=== PATIENT | female | born 1965 | race Two or more races ===

== ENCOUNTER 2024-02-25 17:43 | Inpatient (IN) | payer MEDICAID, OTHER ==
[~2024-02-25] VITALS: Ht 160 cm; Wt 93.3 kg
--- NOTE | 2024-02-25 18:00 | ECG ---
[facility] Test Date: 2024-02-25 Test Time: 17:59:09 Pat Name: SIDDHARTH IVAN Department: ER Room: Gender: F Fan Mail Editor: JORDON : 1965 Requested By: JINA ALEMAN Order Number: [id number] Reading MD: Measurements Intervals [place] Rate: 85 P: 65 CA: 179 QRS: 98 QRSD: 84 T: 267 QT: 408 QTc: 486 Interpretive Statements Sinus rhythm Right axis deviation Abnrm T, consider ischemia, anterolateral lds Please click the below link to view image of tracing.
--- NOTE | 2024-02-25 18:15 | ED.PDOC ---
History of Present Illness HPI Comments 58F BIBA w/ prior Hx of Anxiety, HTN and High Lipids which all may be associated to the c/c of CP. EMS report that the pt drank some wine w/ her family when she got into a dispute with them and started to have pressure like CP on the left chest cavity at 1710. We did call Doctor Abigail and he stated that there was no Stemi. Pain Type of a 8. PMHx of Asthma and COPD. Social Hx of quit tobacco use 4 years ago, occasional alcohol use, and marijuana use. Family Hx of DM, HTN and Lung cancer. Denies chills, fever, N/V/D, SOB or other associated symptom's, modifiers, or recent injuries or sick contact at this time. Chief Complaint: Chest Pain Time Seen by MD: 18:00 Reviewed Notes: Nurses Notes, Medications, Allergies Allergies: Coded Allergies: Niacin (Verified Allergy, Unknown, 02/25/24) Information Source: Patient, Emergency Med Personnel Mode of Arrival: EMS Severity: Moderate Timing: Minutes Duration: Since onset, Minutes Prehospital treatment: None Past Medical History PAST MEDICAL HISTORY: Anxiety, Asthma, COPD, High Lipids, HTN Surgical History: Denies all surgeries ROUTING MACHINE OPERATOR History: No Pertinent ROUTING MACHINE OPERATOR History Family History Family History: Reviewed,noncontributory to illness, Family hx of DM, Family hx of Cancer (Lung), Family hx of HTN Social History Smoker: Quit Greater Than 1 Year Alcohol: Occasionally Drugs: Marijuana Lives In: Home Constitutional: denies: chills, diaphoresis, fatigue, fever, malaise, sweats, weakness, others EENTM: denies: blurred vision, double vision, ear bleeding, ear discharge, ear drainage, ear pain, ear ringing, eye pain, eye redness, hearing loss, mouth pain, mouth swelling, nasal discharge, nose bleeding, nose congestion, nose pain, photophobia, tearing, throat pain, throat swelling, voice changes, others Respiratory: denies: cough, hemoptysis, orthopnea, SOB at rest, shortness of breath, SOB with excertion, stridor, wheezing, others Cardiovascular: reports: chest pain; denies: dizzy spells, diaphoresis, Dyspnea on exertion, edema, irregular heart beat, left arm pain, lightheadedness, palpitations, PND, syncope, others Gastrointestinal: denies: abdomen distended, abdominal pain, blood streaked bowels, constipated, diarrhea, dysphagia, difficulty swallowing, hematemesis, melena, nausea, poor appetite, poor fluid intake, rectal bleeding, rectal pain, vomiting, others Genitourinary: denies: abnormal vagina bleeding, burning, dyspareunia, dysuria, flank pain, frequency, hematuria, incontinence, pain, , vagina discharge, urgency, others Neurological: denies: dizziness, fainting, headache, left sided numbness, left sided weakness, numbness, paresthesia, pre-existing deficit, right sided numbness, right sided weakness, seizure, speech problems, tingling, tremors, weakness, others Musculoskeletal: denies: back pain, gout, joint pain, joint swelling, muscle pain, muscle stiffness, neck pain, others Integumetry: denies: bruises, change in color, change in hair/nails, dryness, laceration, lesions, lumps, rash, wounds, others Allergic/Immunocompromised: denies: Difficulty Healing, Frequent Infections, Hives, Itching, others Hematologic/Lymphatic: denies: anemia, blood clots, easy bleeding, easy bruising, swollen glands, others Endocrine: denies: excessive hunger, excessive sweating, excessive thirst, excessive urination, flushing, intolerance to cold, intolerance to heat, unexplained weight gain, unexplained weight loss, others Psychiatric: denies: anxiety, bipolar disorder, depression, hopeless, panic disorder, schizophrenia, sleepless, suicidal, others All Other Systems: Reviewed and Negative Physical Exam General Appearance: Moderate Distress HEENT: Normal ENT Inspection, Pharynx Normal, TMs Normal Neck: Full Range of Motion, Non-Tender, Normal, Normal Inspection Respiratory: Chest Non-Tender, Lungs Clear, No Accessory Muscle Use, No Respiratory Distress, Normal Breath Sounds Cardiovascular: No Edema, No JVD, No Murmur, No Gallop, Normal Peripheral Pulses, Regular Rate/Rhythm Breast Exam: Deferred Gastrointestinal: No Organomegaly, Non Tender, No Pulsatile Mass, Normal Bowel Sounds, Soft Genitalia: Deferred Pelvic: Deferred Rectal: Deferred Extremities: No calf tenderness, Normal capillary refill, Normal inspection, Normal range of motion, Non-tender, No pedal edema Musculoskeletal : Apperance: Normal Neurologic: Alert, dispatch specialist II-XII nml as Tested, No Motor Deficits, Normal Affect, Normal Mood, No Sensory Deficits Cerebellar Function: Normal Reflexes: Normal Skin: Dry, Normal Color, Warm Lymphatic: No Adenopathy Was a procedure done? Was a procedure done?: No EKG EKG : Pulse Rate (adult): 74 [place]: Normal Cardiac Rhythm: NSR ST: Nonsp Differential Dx Considerations may include: ACS, CT, acute myocardial ischemia X-Ray, Labs, Meds, VS Vital Signs Date Time Temp Pulse Resp B/P (MAP) Pulse Ox O2 Delivery O2 Flow Rate FiO2 02/25/24 19:35 Room Air* 0 21 02/25/24 18:51 79 02/25/24 18:37 Room Air* 0 21 02/25/24 18:35 98.0 84 12 96/75 (82) 94 98.0 02/25/24 17:59 85 02/25/24 17:57 98.3 99 16 120/82 (95) 98 Lab Test 02/25/24 18:58 02/25/24 18:04 Range/Units Troponin I High Sensitivity 233 *H 233 *H </=34 ng/L White Blood Count 6.8 4.4-10.8 10^3/uL Red Blood Count 4.08 4.0-5.20 10^6/uL Hemoglobin 11.1 L 12.2-16.2 g/dL Hematocrit 34.2 L 36.0-46.0 % Mean Corpuscular Volume 83.7 80.0-100.0 fL Mean Corpuscular Hemoglobin 27.1 L 28.0-32.0 pg Mean Corpuscular Hemoglobin Concent 32.4 32.0-36.0 g/dL Red Cell Distribution Width 17.4 H 11.8-14.3 % Platelet Count 364 140-450 10^3/uL Mean Platelet Volume 7.1 6.9-10.8 fL Neutrophils (%) (Auto) 54.0 37.0-80.0 % Lymphocytes (%) (Auto) 33.9 10.0-50.0 % Monocytes (%) (Auto) 10.3 0.0-12.0 % Eosinophils (%) (Auto) 0.6 0.0-7.0 % Basophils (%) (Auto) 1.2 0.0-2.0 % Neutrophils # (Auto) 3.7 1.6-8.6 10 ^3/uL Lymphocytes # (Auto) 2.3 0.4-5.4 10 ^3/uL Monocytes # (Auto) 0.7 0-1.3 10 ^3/uL Eosinophils # (Auto) 0 0-0.8 10 ^3/uL Basophils # (Auto) 0.1 0-0.2 10 ^3/uL Nucleated Red Blood Cells 0.0 % Prothrombin Time 10.5 9.3-11.8 sec Prothrombin Time INR 0.99 0.9-1.15 Activated Partial Thromboplast Time 23.3 L 24.5-34.5 SEC Sodium Level 139 136-145 mmol/L Potassium Level 2.8 L 3.5-5.1 mmol/L Chloride Level 100 98-107 mmol/L Carbon Dioxide Level 26 20-31 mmol/L Anion Gap 13 5-15 Blood Urea Nitrogen 13 9-23 mg/dL Creatinine 0.95 0.550-1.02 mg/dL Glomerular Filtration Rate Calc 69 >90 mL/min BUN/Creatinine Ratio 13.7 10.0-20.0 Serum Glucose 95 74-106 mg/dL Calcium Level 10.1 8.7-10.4 mg/dL Magnesium Level 1.6 1.6-2.6 mg/dL Total Bilirubin 0.3 0.2-1.0 mg/dL Aspartate Amino Transferase (AST) 20 13-40 U/L Alanine Aminotransferase (ALT) 25 7-40 U/L Alkaline Phosphatase 88 46-116 U/L B-Type Natriuretic Peptide 529.64 0-100 pg/mL Total Protein 6.3 5.7-8.2 g/dL Albumin 4.3 3.2-4.8 g/dL Current Medications Medications (Trade) Dose Ordered Sig/Ahsan Route Start Time Stop Time Status Last Admin Aspirin 162 mg ONCE ONCE PO 02/25/24 18:15 02/25/24 18:16 DC 02/25/24 18:22 Heparin Sodium (Porcine) 4,000 units ONCE ONCE IV 02/25/24 19:15 02/25/24 19:16 DC 02/25/24 20:32 IV Hep-Lock was established The patient's CBC is within normal limits The chemistry panel is within normal limits The patient's troponin levels are elevated at 233 We did repeat the troponin and it was the same The patient is now being started on heparin 4000 units IV push The patient was also being given heparin drip The patient was being admitted to the hospitalist at this time The patient was diagnosis is non STEMI We have discussed the findings with the patient. We have taken the time to review all medications and labs results The patient will be admitted Images Reviewed?: Images reviewed and evaluated by me Time of 1ST Reevaluation: 18:30 Reevaluation 1ST: Unchanged Patient Education/Counseling: Diagnosis, Treatment, Prognosis Family Education/Counseling: No Family Present Departure 1 Departure Time of Disposition: 21:23 Impression: Primary Impression: Non-STEMI (non-ST elevated myocardial infarction) Disposition: ADMITTED INPATIENT Admit to: Tele Condition: Fair Critical Care Note Critical Care Time?: Yes (35 min-critical care time only) Stability Stability form required: Yes Unstable for transfer: Telemetry monitoring (Telemetry monitoring required), ED Physician Assesment (Clinical assesment) Heart Score Heart Score: Heart Score Response (Comments) Value History Moderate Suspicious 1 EKG Repolarization Disturb 1 Age 45-64 1 Risk Factors >3 or Hx ASHD 2 Troponin 1-2 x's Normal limit 1 Total 6 I personally scribed for JINA ALEMAN MD ([email or web address]) on 02/25/24 at 18:15. Electronically submitted by Kvng Corbin ([email or web address]). JINA ALEMAN MD Feb 25, 2024 18:15
[2024-02-25 18:17] LABS: Basophils # (auto) 0.1 10 ^3/uL (0-0.2); Basophils % (auto) 1.2 % (0.0-2.0); Eosinophils # (auto) 0 10 ^3/uL (0-0.8); Eosinophils % (auto) 0.6 % (0.0-7.0); Hematocrit 34.2 % (36.0-46.0); Hemoglobin 11.1 g/dL (12.2-16.2); Lymphocytes # (auto) 2.3 10 ^3/uL (0.4-5.4); Lymphocytes % (auto) 33.9 % (10.0-50.0); Mean Corpuscular Hemoglobin 27.1 pg (28.0-32.0); Mean Corpuscular Hgb Conc. 32.4 g/dL (32.0-36.0); Mean Corpuscular Volume 83.7 fL (80.0-100.0); Monocytes # (auto) 0.7 10 ^3/uL (0-1.3); Monocytes % (auto) 10.3 % (0.0-12.0); Neutrophils # (auto) 3.7 10 ^3/uL (1.6-8.6); Platelet Count (auto) 364 10^3/uL (140-450); Red Blood Cells 4.08 10^6/uL (4.0-5.20); Red Cell Distribution Width 17.4 % (11.8-14.3); White Blood Cell 6.8 10^3/uL (4.4-10.8)
[2024-02-25] MEDS: ASPirin 81 mg TAB PO ONE (18:22)
[2024-02-25 18:34] LABS: Alanine Aminotransferase 25 U/L (7-40); Albumin 4.3 g/dL (3.2-4.8); Alkaline Phosphatase 88 U/L (46-116); Anion Gap 13 (5-15); Aspartate Aminotransferase 20 U/L (13-40); BUN/Creatinine Ratio 13.7 (10.0-20.0); Blood Urea Nitrogen 13 mg/dL (9-23); Calcium 10.1 mg/dL (8.7-10.4); Carbon Dioxide 26 mmol/L (20-31); Chloride 100 mmol/L (98-107); Glucose 95 mg/dL (74-106); Magnesium 1.6 mg/dL (1.6-2.6); Sodium 139 mmol/L (136-145)
[2024-02-25 18:35] LABS: Total Protein 6.3 g/dL (5.7-8.2)
[2024-02-25 18:37] LABS: Bilirubin, Total 0.3 mg/dL (0.2-1.0); Potassium 2.8 mmol/L (3.5-5.1)
--- NOTE | 2024-02-25 18:41 | DVH ---
CHEST RADIOGRAPH Indication: CP Technique: Single frontal view of the chest was obtained Comparison: None FINDINGS: Lines and Tubes: None Lungs: No focal consolidation. Pleura: No effusion. No pneumothorax. Cardiomediastinal contours: Unremarkable Bones: No acute osseous abnormality. IMPRESSION: No acute cardiopulmonary disease.
--- NOTE | 2024-02-25 18:53 | ECG ---
[facility] Test Date: 2024-02-25 Test Time: 18:51:42 Pat Name: SIDDHARTH IVAN Department: ER Room: Gender: F Force Dispatcher: JOSÉ MIGUEL : 1965 Requested By: JINA ALEMAN Order Number: [id number] Reading MD: Measurements Intervals [place] Rate: 79 P: 56 [place]: 169 QRS: 90 QRSD: 105 T: 266 QT: 406 QTc: 466 Interpretive Statements Sinus rhythm Borderline right axis deviation Repol abnrm suggests ischemia, anterolateral Please click the below link to view image of tracing.
[2024-02-25] MEDS ORDERED: ALBUTEROL SULF 2.5 MG/0.5ML(0.5%) NEB SOLN NEB PRN (20:15)
[2024-02-25] MEDS ORDERED: ACETAMINOPHEN 325 MG TAB PO PRN (20:15)
[2024-02-25] MEDS ORDERED: ONDANSETRON HCL 4 MG/2 ML VIAL IV PRN (20:15)
[2024-02-25] MEDS ORDERED: NITROGLYCERIN 0.4 MG SL TAB SL PRN (20:15)
[2024-02-25] MEDS ORDERED: MORPHINE SULFATE INJ 2 MG/ml SYRG IV PRN (20:15)
[2024-02-25 20:17] LABS: INR 0.99 (0.9-1.15); Partial Thromboplastin Time 23.3 SEC (24.5-34.5); Prothrombin Time 10.5 sec (9.3-11.8)
[2024-02-25] MEDS: HEPARIN SODIUM (PORCINE) 5000 UNITS/ML 1ML VIAL IV ONE ×2 (20:25→20:32)
[2024-02-25] MEDS: HEPARIN DRIP/D5W 100UNITS/ML 250 ML IV SCH (20:34)
[2024-02-25 20:51] VITALS: BP 96/75; PULSE 73; RESP 14; TEMP 98; O2SAT 95
[2024-02-25] MEDS: busPIRone HCL 10 MG TAB PO SCH (22:02)
[2024-02-25] MEDS: ATORVASTATIN 20 MG TAB PO SCH (22:02)
[2024-02-25 22:58] VITALS: BP 113/66; PULSE 67; PULSE 69; RESP 16; RESP 19; TEMP 97.9; O2SAT 94; O2SAT 95; O2SAT 96
[2024-02-26] VITALS (16 sets, daily range): BP systolic 107–128; BP diastolic 64–95; PULSE 63–86; RESP 16–20; TEMP 97.8–98.3; O2SAT 93–96
[2024-02-26] MEDS: POTASSIUM CHL 20 Meq TABLET PO ONE (00:46)
[2024-02-26] MEDS ORDERED: BUSP15TA60 PO (02:32)
[2024-02-26] MEDS ORDERED: HYDR12.59 PO (02:32)
[2024-02-26] MEDS ORDERED: IBUP-1455 PO (02:32)
[2024-02-26] MEDS ORDERED: CITA10TA5 PO (02:32)
[2024-02-26] MEDS ORDERED: FAMO40TA7 PO (02:32)
[2024-02-26] MEDS ORDERED: ATOR10TA52 PO (02:32)
--- NOTE | 2024-02-26 02:50 | DVHHP2 ---
History of Present Illness Reason for Visit: Chest pain History of Present Illness 58-year-old female presents for evaluation chest pain. Patient reports developing left-sided chest pressure that was nonradiating. She states having an argument with a family member and subsequently symptoms started. Denies shortness or breath, nausea or vomiting. Past Medical History Dyslipidemia, hypertension, COPD, asthma Past Surgical History Denies Family History Lung cancer, hypertension, diabetes mellitus Smoke: No ALCOHOL: none Drugs: None Lives: with Family Review of Systems Review of Systems Review of systems are currently negative otherwise addressed in HPI. Allergies: Coded Allergies: Niacin (Verified Allergy, Unknown, 02/25/24) Medications Current Medications Medications Dose Ordered Sig/Ahsan Route Start Time Stop Time Status Last Admin Dose Admin Heparin Sodium/ Dextrose 250 ml @ 9 mls/hr Q24H IV 02/25/24 20:30 02/25/24 20:34 9 MLS/HR Hydrochlorothiazide 12.5 mg DAILY PO 02/26/24 10:00 Atorvastatin Calcium 10 mg HS PO 02/25/24 22:00 02/25/24 22:02 10 MG Albuterol 2.5 mg Q6HPRN PRN NEB 02/25/24 20:15 Buspirone HCl 15 mg Q12HR PO 02/25/24 22:00 02/25/24 22:02 15 MG Lisinopril 2.5 mg DAILY PO 02/26/24 10:00 Aspirin 162 mg DAILY PO 02/26/24 10:00 Ondansetron HCl 4 mg Q4HP PRN IV 02/25/24 20:15 Acetaminophen 650 mg Q6HP PRN PO 02/25/24 20:15 Nitroglycerin 0.4 mg Q5MINP PRN SL 02/25/24 20:15 Morphine Sulfate 2 mg Q30M PRN IV 02/25/24 20:15 Exam Vital Signs Vital Signs Date Time Temp Pulse Resp B/P (MAP) Pulse Ox O2 Delivery O2 Flow Rate FiO2 02/26/24 01:26 97.8 70 16 113/66 (82) 96 97.8 02/25/24 22:58 Room Air* 0 21 Exam Gen: 58-year-old female in no apparent distress. Skin: Warm, dry, normal color and texture, no rash. HEENT: Normocephalic atraumatic, mucous membranes moist and pink. Neck: Cervical and supraclavicular nodes normal without enlargement, trachea is midline, thyroid gland is normal without masses. Pulmonary: Clear to auscultation and percussion bilaterally. Cardiac: Regular rate and rhythm. No murmur Abdomen: Soft, nontender, nondistended, bowel sounds present all 4 quadrants, no guarding, no rigidity, no organomegaly. Extremities: No cyanosis, clubbing, no edema Neuro: Cranial nerves II through XII grossly intact, normal affect and speech, no focal motor deficits. Labs/Xrays ORDERING PHYSICIAN: JINA ALEMAN MD PROCEDURE(s): CXRP - CHEST PORTABLE REASON: CP ORDER NUMBER(s): [id number], ACCESSION NUMBER(s): [id number] CHEST RADIOGRAPH Indication: CP Technique: Single frontal view of the chest was obtained Comparison: None FINDINGS: Lines and Tubes: None Lungs: No focal consolidation. Pleura: No effusion. No pneumothorax. Cardiomediastinal contours: Unremarkable Bones: No acute osseous abnormality. IMPRESSION: No acute cardiopulmonary disease. Labs Test 02/25/24 21:05 02/25/24 18:04 Range/Units Troponin I High Sensitivity 246 *H </=34 ng/L White Blood Count 6.8 4.4-10.8 10^3/uL Red Blood Count 4.08 4.0-5.20 10^6/uL Hemoglobin 11.1 L 12.2-16.2 g/dL Hematocrit 34.2 L 36.0-46.0 % Mean Corpuscular Volume 83.7 80.0-100.0 fL Mean Corpuscular Hemoglobin 27.1 L 28.0-32.0 pg Mean Corpuscular Hemoglobin Concent 32.4 32.0-36.0 g/dL Red Cell Distribution Width 17.4 H 11.8-14.3 % Platelet Count 364 140-450 10^3/uL Mean Platelet Volume 7.1 6.9-10.8 fL Neutrophils (%) (Auto) 54.0 37.0-80.0 % Lymphocytes (%) (Auto) 33.9 10.0-50.0 % Monocytes (%) (Auto) 10.3 0.0-12.0 % Eosinophils (%) (Auto) 0.6 0.0-7.0 % Basophils (%) (Auto) 1.2 0.0-2.0 % Neutrophils # (Auto) 3.7 1.6-8.6 10 ^3/uL Lymphocytes # (Auto) 2.3 0.4-5.4 10 ^3/uL Monocytes # (Auto) 0.7 0-1.3 10 ^3/uL Eosinophils # (Auto) 0 0-0.8 10 ^3/uL Basophils # (Auto) 0.1 0-0.2 10 ^3/uL Nucleated Red Blood Cells 0.0 % Prothrombin Time 10.5 9.3-11.8 sec Prothrombin Time INR 0.99 0.9-1.15 Activated Partial Thromboplast Time 23.3 L 24.5-34.5 SEC Sodium Level 139 136-145 mmol/L Potassium Level 2.8 L 3.5-5.1 mmol/L Chloride Level 100 98-107 mmol/L Carbon Dioxide Level 26 20-31 mmol/L Anion Gap 13 5-15 Blood Urea Nitrogen 13 9-23 mg/dL Creatinine 0.95 0.550-1.02 mg/dL Glomerular Filtration Rate Calc 69 >90 mL/min BUN/Creatinine Ratio 13.7 10.0-20.0 Serum Glucose 95 74-106 mg/dL Calcium Level 10.1 8.7-10.4 mg/dL Magnesium Level 1.6 1.6-2.6 mg/dL Total Bilirubin 0.3 0.2-1.0 mg/dL Aspartate Amino Transferase (AST) 20 13-40 U/L Alanine Aminotransferase (ALT) 25 7-40 U/L Alkaline Phosphatase 88 46-116 U/L B-Type Natriuretic Peptide 529.64 0-100 pg/mL Total Protein 6.3 5.7-8.2 g/dL Albumin 4.3 3.2-4.8 g/dL Assessment/Plan Assessment/Plan Assessment NSTEMI Hypertension COPD Plan Admit the patient to telemetry to the hospitalist ACS protocol Resume home medications Continue treatment orders. Plan discussed with: Patient My Orders Orders - SHASHA WEI AGACNP Procedure Category Date Status Time Hydrochlorothiazide PHA 02/26/24 In Process Tablet (Hydrochlorot 10:00 Atorvastatin (Lipitor) PHA 02/25/24 In Process 22:00 Albuterol Medneb PHA 02/25/24 In Process (Ventolin Medneb) 20:15 Buspirone Hcl Tablet PHA 02/25/24 In Process (Buspar Tablet) 22:00 Lisinopril Tablet PHA 02/26/24 In Process (Zestril Tablet) 10:00 Aspirin Tablet PHA 02/26/24 In Process 10:00 Admit ADMIT 02/25/24 Transmitted 20:08 Ondansetron Hcl PHA 02/25/24 In Process (Zofran) 20:15 Cardiac DIET 02/26/24 Transmitted Diet-2gna,Lofat,Lochol Breakfast Echo 2d Mode Cardiac US 02/25/24 Logged DOP 20:08 Condition: Fair DEJON 02/25/24 In Process 20:08 Acetaminophen Tablet [facility] 02/25/24 In Process (Tylenol Tablet) 20:15 Bedrest With Bathroom DEJON 02/25/24 In Process Privileg 20:08 Nitroglycerin PHA 02/25/24 In Process Sublingual (Ntrostat 20:15 Morphine Sulfate PHA 02/25/24 In Process Injection 20:15 Notify Of Changes [facility] 02/25/24 In Process From Base 20:08 Health And Safety Tech For [facility] 02/25/24 In Process 24 Hours 20:08 Emergency Dysrhythmia [facility] 02/25/24 In Process Protocol 20:08 Rhythm Strips Once [facility] 02/25/24 In Process Every Shift 20:08 Oxygen By Nasal RT 02/25/24 Transmitted Cannula 20:08 Basic Metabolic Panel LAB 02/26/24 Logged 04:00 Cssrs Frequent [facility] 02/25/24 In Process Screener (Daily 23:50 Patient & Room / [facility] 02/25/24 In Process Environmental 23:50 *Tele Psych Consult CONS 02/25/24 Transmitted 23:50 * Clothing Examiner CONS 02/26/24 Transmitted Consult 01:39 Date of Service: Feb 25, 2024 Billing Provider: SHASHA WEI Common Visit Codes: [id number] INP/OBS CARE (HIGH) SHASHA WEI Feb 26, 2024 02:50
[2024-02-26 03:12] LABS: Chloride 104 mmol/L (98-107); Sodium 142 mmol/L (136-145)
[2024-02-26 03:14] LABS: Anion Gap 9 (5-15); Carbon Dioxide 29 mmol/L (20-31)
[2024-02-26 03:19] LABS: Glucose 102 mg/dL (74-106)
[2024-02-26 03:20] LABS: INR 1.04 (0.9-1.15); Partial Thromboplastin Time 33.6 SEC (24.5-34.5)
[2024-02-26 03:21] LABS: Potassium 3.3 mmol/L (3.5-5.1)
[2024-02-26 03:30] LABS: BUN/Creatinine Ratio 11.4 (10.0-20.0); Blood Urea Nitrogen 9 mg/dL (9-23)
[2024-02-26] MEDS: HEPARIN SODIUM (PORCINE) 5000 UNITS/ML 1ML VIAL IV ONE (04:15)
[2024-02-26] MEDS: HEPARIN DRIP/D5W 100UNITS/ML 250 ML IV SCH (04:18)
[2024-02-26] MEDS: PNEUMOCOCCAL VACC POLYS 25 MCG/0.5 ML VIAL IM ONE (04:25)
--- NOTE | 2024-02-26 05:58 | DVHINCON2 ---
Date of service: Feb 26, 2024 History of Present Illness 58 yo F with obesity, HTN, tobacco former, copd, admitted for chest pain and nstemi. i was called for abnormla ecg showing TWI inferolaterally. chest pain resolved overnight Past Medical History reviewed Family History: Patient reports no known family medical history. Allergies: Coded Allergies: Niacin (Verified Allergy, Unknown, 02/25/24) Home Meds Reported Medications Famotidine (Famotidine) 40 Mg Tab, 1 TAB PO DAILY 02/26/24 Citalopram Hydrobromide (Citalopram Hydrobromide) 10 Mg Tab, 1 TAB PO DAILY 02/26/24 Ibuprofen Micronized (Ibuprofen) 800 Mg Tab, 1 TAB PO Q8HPRN for PAIN SCALE 1 THRU 6 02/26/24 Buspirone Hcl (Buspirone Hcl) 15 Mg Tab, 1 TAB PO BIDPRN PRN for anxiety 02/26/24 Atorvastatin Calcium (ATORVASTATIN CALCIUM) 10 Mg Tab, 1 TAB PO DAILY 02/26/24 Hydrochlorothiazide (Hydrochlorothiazide) 12.5 Mg Cap, 1 CAP PO QAM 02/26/24 Current Medications Current Medications Medications (Trade) Dose Ordered Sig/Ahsan Route PRN Reason Start Time Stop Time Status Last Admin Heparin Sodium/ Dextrose 250 ml @ 9 mls/hr Q24H IV 02/25/24 20:30 02/26/24 04:01 DC 02/25/24 20:34 Hydrochlorothiazide (hydroCHLOROthiazide TABLET) 12.5 mg DAILY PO 02/26/24 10:00 Atorvastatin Calcium (Lipitor) 10 mg HS PO 02/25/24 22:00 02/25/24 22:02 Albuterol (Ventolin Medneb) 2.5 mg Q6HPRN PRN NEB SHORTNESS OF BREATH 02/25/24 20:15 Buspirone HCl (Buspar Tablet) 15 mg Q12HR PO 02/25/24 22:00 02/25/24 22:02 Lisinopril (Zestril Tablet) 2.5 mg DAILY PO 02/26/24 10:00 Aspirin 162 mg DAILY PO 02/26/24 10:00 Ondansetron HCl (Zofran) 4 mg Q4HP PRN IV NAUSEA / VOMITING 02/25/24 20:15 Acetaminophen (Tylenol Tablet) 650 mg Q6HP PRN PO PAIN SCALE 1-3 OR TEMP>100.4 02/25/24 20:15 Nitroglycerin (Ntrostat Sublingual) 0.4 mg Q5MINP PRN SL FOR CHEST PAIN 02/25/24 20:15 Morphine Sulfate 2 mg Q30M PRN IV FOR CHEST PAIN 02/25/24 20:15 Heparin Sodium/ Dextrose 250 ml @ 12 mls/hr [id number] IV 02/26/24 04:15 02/26/24 04:18 Review of Systems 10 pt ros otherwise negative Vital Signs Vital Signs Date Time Temp Pulse Resp B/P (MAP) Pulse Ox O2 Delivery O2 Flow Rate FiO2 02/26/24 04:20 98.2 74 20 126/68 (87) 94 98.2 02/25/24 22:58 Room Air* 0 21 Physical Exam nad s1 s2 rrr ctab soft nt/nd no edema Labs/Diagnostic Data Labs Test 02/26/24 02:45 02/25/24 21:05 02/25/24 18:04 Range/Units Prothrombin Time 11.0 9.3-11.8 sec Prothrombin Time INR 1.04 0.9-1.15 Activated Partial Thromboplast Time 33.6 24.5-34.5 SEC Sodium Level 142 136-145 mmol/L Potassium Level 3.3 L 3.5-5.1 mmol/L Chloride Level 104 98-107 mmol/L Carbon Dioxide Level 29 20-31 mmol/L Anion Gap 9 5-15 Blood Urea Nitrogen 9 9-23 mg/dL Creatinine 0.79 0.550-1.02 mg/dL Glomerular Filtration Rate Calc 86 >90 mL/min BUN/Creatinine Ratio 11.4 10.0-20.0 Serum Glucose 102 74-106 mg/dL Calcium Level 10.0 8.7-10.4 mg/dL Troponin I High Sensitivity 246 *H </=34 ng/L White Blood Count 6.8 4.4-10.8 10^3/uL Red Blood Count 4.08 4.0-5.20 10^6/uL Hemoglobin 11.1 L 12.2-16.2 g/dL Hematocrit 34.2 L 36.0-46.0 % Mean Corpuscular Volume 83.7 80.0-100.0 fL Mean Corpuscular Hemoglobin 27.1 L 28.0-32.0 pg Mean Corpuscular Hemoglobin Concent 32.4 32.0-36.0 g/dL Red Cell Distribution Width 17.4 H 11.8-14.3 % Platelet Count 364 140-450 10^3/uL Mean Platelet Volume 7.1 6.9-10.8 fL Neutrophils (%) (Auto) 54.0 37.0-80.0 % Lymphocytes (%) (Auto) 33.9 10.0-50.0 % Monocytes (%) (Auto) 10.3 0.0-12.0 % Eosinophils (%) (Auto) 0.6 0.0-7.0 % Basophils (%) (Auto) 1.2 0.0-2.0 % Neutrophils # (Auto) 3.7 1.6-8.6 10 ^3/uL Lymphocytes # (Auto) 2.3 0.4-5.4 10 ^3/uL Monocytes # (Auto) 0.7 0-1.3 10 ^3/uL Eosinophils # (Auto) 0 0-0.8 10 ^3/uL Basophils # (Auto) 0.1 0-0.2 10 ^3/uL Nucleated Red Blood Cells 0.0 % Magnesium Level 1.6 1.6-2.6 mg/dL Total Bilirubin 0.3 0.2-1.0 mg/dL Aspartate Amino Transferase (AST) 20 13-40 U/L Alanine Aminotransferase (ALT) 25 7-40 U/L Alkaline Phosphatase 88 46-116 U/L B-Type Natriuretic Peptide 529.64 0-100 pg/mL Total Protein 6.3 5.7-8.2 g/dL Albumin 4.3 3.2-4.8 g/dL Assessment nstemi abnormal ecg copd tobacco HTN Plan/Recommendation ACS occured while fighitnig with her friend and yelling ecg suspicious for c ad [facility] recommended, pt agrees to plan with me and HIGINIO he after informed consent asa statin check echo ivy 40 mins critical care time spent new consult Plan discussed with: Patient YUNIORCARON MD Feb 26, 2024 05:58
[2024-02-26] MEDS: LIDOCAINE 2%HCL (LOCAL ANESTH.) INJ 20ML MDV ONE (10:06)
[2024-02-26] MEDS: HEPARIN SODIUM (PORCINE) 5000 UNITS/ML 1ML VIAL ONE (10:07)
[2024-02-26] MEDS: fentaNYL CITRATE 100 MCG/2 ML VL ONE (10:07)
[2024-02-26] MEDS: IODIXANOL 320MG/ML 100ML BTL IV ONE (10:07)
[2024-02-26] MEDS: VERAPAMIL 2.5MG/ML INJ 2ML VIAL IV ONE (10:07)
[2024-02-26] MEDS: HEPARIN IN NS 1000Units/500mL 1,500 ML ONE (10:07)
[2024-02-26] MEDS: MIDAZOLAM HCL 2MG/2ML 2ml VIAL (1mg/ml) ONE (10:07)
[2024-02-26] MEDS: ANGIOMAX 250 MG VIAL IV ONE (10:08)
[2024-02-26] MEDS: SODIUM CHL 0.9% 0 ML ONE (10:08)
--- NOTE | 2024-02-26 10:10 | DVHOP2 ---
Operative Report Operative Report CARDIAC SUBMARINE ADVISORY TEAM WATCH OFFICER PROCEDURE REPORT [place], [place] Date of Service: 02/26/24 Automatic Coin Machine Mechanic: Caron Mojica MD PROCEDURES PERFORMED: Coronary angiogram, left heart catheterization, conscious sedation administration and supervision, less than 15 minutes; fluoroscopy use and interpretation. PREOPERATIVE DIAGNOSES: nstemi POSTOP DIAGNOSIS: nstemi DESCRIPTION OF PROCEDURE: The patient or appropriate family signed informed consent understanding the risks, benefits and alternatives of the procedure, they wished to proceed. The patient was brought to the cardiac laborer orchard in n.p.o. state. The patient was prepped in a sterile fashion. Sedation was used per cardiac cath protocol. I administered 2 mL of 2% lidocaine to the right wrist. With an antegrade front wall puncture. I cannulated the right radial artery and placed a 6-Russian Glidesheath slender. Next, an intra-arterial spasmolytic was administered. Next, a - 5 Russian Rice catheter and were used for coronary angiogram and LVEDP measurement and pressure pullback. At the completion of procedure, all guides and wires were removed, and there were no immediate complications. FINDINGS: RCA: Moderate vessel off the right sinus of Valsalva, there is no severe flow limiting stenosis. nodular ectasia in proximal vessel. moderate luminal irr egularities noted LEFT MAIN: Moderate size left main, it bifurcates into LAD and circumflex. no severe stenosis CIRCUMFLEX: Moderate caliber vessel coming off the left main with no flow limiting stenosis. LAD: LAD is a moderate caliber vessel coming of the left main. mid LAD at bifurcation has mild 30% hazy stenosis. excellent flow throught LAD with luminal irregularities noted LVEDP of 11 mmhg. CONCLUSIONS: 1. mild CAD, non obstructive PLAN: Aggressive risk factor modification and medical management for the patient. plavix x1 month asa, statin CARON MOJICA MD Feb 26, 2024 10:10
--- NOTE | 2024-02-26 10:26 | DVHSR ---
APPROVED REPORT EXAM: Two-dimensional and M-mode echocardiogram with Doppler and color Doppler. Blood Pressure: 126/68 mmHg INDICATION Chest Pain RISK FACTORS Height: 5'3", Weight: 211 DIMENSIONS LVDd4.9 (3.8-5.7cm)LA (2D)3.5 (1.9-4.0cm)Aortic Root3.1 (2.0-3.7cm) LVDs3.0 (2.5-4.0cm)LA (MM) (1.9-4.0cm)Aortic Cusp Exc1.8 (1.5-2.0cm) EF (%) 69.0 (55-70%)Rt. Atrium3.5 (1.9-4.0cm)Asc. Aorta cm IVSd (0.7-1.1cm)RV (D)3.6 (1.8-2.4cm) Mitral Valve MitralMitral Stenosis E wave0.97m/sMV Mean GR.mmHg A wave0.79m/sMV Peak GR.mmHg E/A ratio1.22D MVAcm2 DECEL [id number] 1/2 [place] Aortic Valve Aortic ValveAortic Stenosis V11.57m/Baltazar Mean GR.7mmHg V21.71m/Baltazar Peak GR.12mmHg LVOT Diameter2.1 (1.8-2.4cm)Doppler AVA3.18cm2 Other Information Quality : Technically LimitedRhythm : Technically limited study due to body habitus. Conclusion lvef 55% by visual estimate apex an inferoapex hypokinesis noted normal rv function left atrium enlarged mild no severe valveabnormalities noted
[2024-02-26] MEDS: hydroCHLOROthiazide 25 MG TAB PO SCH (12:08)
[2024-02-26] MEDS: ASPirin 81 mg TAB PO SCH (12:09)
[2024-02-26] MEDS: LISINOPRIL 5 MG TAB PO SCH (12:09)
--- NOTE | 2024-02-26 12:12 | DVHPN2 ---
Changes from previous H/P or p: No Changes Objective Vitals Vital Signs Date Time Temp Pulse Resp B/P (MAP) Pulse Ox O2 Delivery O2 Flow Rate FiO2 02/26/24 12:09 128/95 02/26/24 04:20 98.2 74 20 94 98.2 02/25/24 22:58 Room Air* 0 21 Intake/Output Intake and Output 02/26/24 07:00 Intake Total 87 ml Output Total 1 ml Balance 86 ml IV Total 87 ml Output Stool Total 1 ml Medications Current Medications Medications Dose Ordered Sig/Ahsan Route Start Time Stop Time Status Last Admin Dose Admin Hydrochlorothiazide 12.5 mg DAILY PO 02/26/24 10:00 02/26/24 12:08 12.5 MG Atorvastatin Calcium 10 mg HS PO 02/25/24 22:00 02/25/24 22:02 10 MG Albuterol 2.5 mg Q6HPRN PRN NEB 02/25/24 20:15 Buspirone HCl 15 mg Q12HR PO 02/25/24 22:00 02/26/24 12:10 15 MG Lisinopril 2.5 mg DAILY PO 02/26/24 10:00 02/26/24 12:09 2.5 MG Aspirin 162 mg DAILY PO 02/26/24 10:00 02/26/24 12:09 162 MG Ondansetron HCl 4 mg Q4HP PRN IV 02/25/24 20:15 Acetaminophen 650 mg Q6HP PRN PO 02/25/24 20:15 Nitroglycerin 0.4 mg Q5MINP PRN SL 02/25/24 20:15 Morphine Sulfate 2 mg Q30M PRN IV 02/25/24 20:15 Heparin Sodium/ Dextrose 250 ml @ 12 mls/hr [id number] IV 02/26/24 04:15 02/26/24 04:18 12 MLS/HR Clopidogrel Bisulfate 75 mg DAILY PO 02/27/24 10:00 Laboratory Results Laboratory Tests 02/25/24 18:04 02/26/24 02:45 Chemistry Test 02/25/24 18:04 02/26/24 02:45 Albumin 4.3 g/dL (3.2-4.8) Calcium Level 10.1 mg/dL (8.7-10.4) 10.0 mg/dL (8.7-10.4) Magnesium Level 1.6 mg/dL (1.6-2.6) Total Protein 6.3 g/dL (5.7-8.2) Coagulation Test 02/25/24 18:04 02/26/24 02:45 Prothrombin Time 10.5 sec (9.3-11.8) 11.0 sec (9.3-11.8) Prothrombin Time INR 0.99 (0.9-1.15) 1.04 (0.9-1.15) Activated Partial Thromboplast Time 23.3 SEC (24.5-34.5) L 33.6 SEC (24.5-34.5) Cardiac Markers Test 02/25/24 18:04 B-Type Natriuretic Peptide 529.64 pg/mL (0-100) LFT Test 02/25/24 18:04 Alanine Aminotransferase (ALT) 25 U/L (7-40) Alkaline Phosphatase 88 U/L (46-116) Aspartate Amino Transferase (AST) 20 U/L (13-40) Total Bilirubin 0.3 mg/dL (0.2-1.0) Labs and/or images reviewed: Labs reviewed by me, Image(s) reviewed by me Assessment/Plan Assessment/Plan Chest pain secondary to coronary artery disease Non ST-elevation [place] with troponin 250, status post left heart catheterization by Dr. Shin found to have mild coronary artery disease advised aggressive risk factor management Hypertension Hypercholesterolemia Acute COPD exacerbation Asthma Time Spent 45 minutes Patient is full code Advanced care planning time 20 minutes Plan discussed with: Patient Date of Service: Feb 26, 2024 Billing Provider: TONE UGARTE MD Common Visit Codes: [id number] INP/OBS CARE(HIGH) TONE UGARTE MD Feb 26, 2024 12:12
[2024-02-26 12:31] LABS: Triglycerides 90 mg/dL (< 150)
[2024-02-26 12:32] LABS: LDL Cholesterol 67 mg/dL (< 100)
[2024-02-26 12:34] LABS: Cholesterol 133 mg/dL (< 200); HDL Cholesterol 55 mg/dL (40-59)
[2024-02-26 15:29] LABS: Urine Bacteria FEW /hpf (None Seen); Urine Blood Negative /uL (Negative); Urine Clarity Clear (Clear); Urine Color Light-Yellow (Yellow); Urine Mucus FEW (None Seen); Urine Protein, UAD TRACE (Negative); Urine Specific Gravity 1.036 (1.001-1.035); Urine Urobilinogen Normal (Negative); Urine WBC 4 /hpf (0 - 5)
[2024-02-26 15:43] LABS: Amphetamine Screen, Urine Neg (NEGATIVE); Barbiturate Scree,Urine Neg (NEGATIVE); Benzodiazephine Screen, Urine Pos (NEGATIVE); Cannabinoid Screen, Urine Pos (NEGATIVE); Cocaine Screen, Urine Neg (NEGATIVE); Opiate Scree,Urine Neg (NEGATIVE); Phencyclidine Screen, Urine Neg (NEGATIVE)
--- NOTE | 2024-02-26 17:35 | DVHINCON2 ---
Date of Service if different f: Feb 26, 2024 Time of Service: 16:58 Consultation ([facility]) Consulting Physician: HUNTER GARCÍA MD Labs Laboratory Tests Test 02/25/24 18:04 02/25/24 21:05 02/26/24 02:45 02/26/24 06:39 White Blood Count 6.8 10^3/uL (4.4-10.8) Red Blood Count 4.08 10^6/uL (4.0-5.20) Hemoglobin 11.1 g/dL (12.2-16.2) Hematocrit 34.2 % (36.0-46.0) Mean Corpuscular Volume 83.7 fL (80.0-100.0) Mean Corpuscular Hemoglobin 27.1 pg (28.0-32.0) Mean Corpuscular Hemoglobin Concent 32.4 g/dL (32.0-36.0) Red Cell Distribution Width 17.4 % (11.8-14.3) Platelet Count 364 10^3/uL (140-450) Mean Platelet Volume 7.1 fL (6.9-10.8) Neutrophils (%) (Auto) 54.0 % (37.0-80.0) Lymphocytes (%) (Auto) 33.9 % (10.0-50.0) Monocytes (%) (Auto) 10.3 % (0.0-12.0) Eosinophils (%) (Auto) 0.6 % (0.0-7.0) Basophils (%) (Auto) 1.2 % (0.0-2.0) Neutrophils # (Auto) 3.7 10 ^3/uL (1.6-8.6) Lymphocytes # (Auto) 2.3 10 ^3/uL (0.4-5.4) Monocytes # (Auto) 0.7 10 ^3/uL (0-1.3) Eosinophils # (Auto) 0 10 ^3/uL (0-0.8) Basophils # (Auto) 0.1 10 ^3/uL (0-0.2) Nucleated Red Blood Cells 0.0 % Magnesium Level 1.6 mg/dL (1.6-2.6) Total Bilirubin 0.3 mg/dL (0.2-1.0) Aspartate Amino Transf (AST/SGOT) 20 U/L (13-40) Alanine Aminotransferase (ALT/SGPT) 25 U/L (7-40) Alkaline Phosphatase 88 U/L (46-116) B-Type Natriuretic Peptide 529.64 pg/mL (0-100) Total Protein 6.3 g/dL (5.7-8.2) Albumin 4.3 g/dL (3.2-4.8) Troponin I High Sensitivity 246 ng/L (</=34) Prothrombin Time 11.0 sec (9.3-11.8) Prothromb Time International Ratio 1.04 (0.9-1.15) Activated Partial Thromboplast Time 33.6 SEC (24.5-34.5) Sodium Level 142 mmol/L (136-145) Potassium Level 3.3 mmol/L (3.5-5.1) Chloride Level 104 mmol/L (98-107) Carbon Dioxide Level 29 mmol/L (20-31) Anion Gap 9 (5-15) Blood Urea Nitrogen 9 mg/dL (9-23) Creatinine 0.79 mg/dL (0.550-1.02) Glomerular Filtration Rate Calc 86 mL/min (>90) BUN/Creatinine Ratio 11.4 (10.0-20.0) Serum Glucose 102 mg/dL (74-106) Calcium Level 10.0 mg/dL (8.7-10.4) Beta HCG, Quantitative 5.6 mIU/mL (1.5-4.2) Triglycerides Level 90 mg/dL (< 150) Cholesterol Level 133 mg/dL (< 200) LDL Cholesterol 67 mg/dL (< 100) HDL Cholesterol 55 mg/dL (40-59) Thyroid Stimulating Hormone (TSH) 2.91 uIU/mL (0.55-4.78) Test 02/26/24 14:16 Urine Color Light-yellow (Yellow) Urine Clarity Clear (Clear) Urine pH 8.0 (5.0-9.0) Urine Specific [place] 1.036 (1.001-1.035) Urine Protein Trace (Negative) Urine Ketones Negative (Negative) Urine Blood Negative /uL (Negative) Urine Nitrite Negative (Negative) Urine Bilirubin Negative (Negative) Urine Urobilinogen Normal mg/dL (Negative) Urine Leukocyte Esterase Negative /uL (Negative) Urine RBC 1 /hpf (0 - 4) Urine WBC 4 /hpf (0 - 5) Urine Squamous Epithelial Cells Few /hpf (<5) Urine Bacteria Few /hpf (None Seen) Urine Mucus Few (None Seen) Urine Glucose Normal mg/dL (Normal) Urine Opiates Screen Neg (NEGATIVE) Urine Fentanyl Screen Neg (NEGATIVE) Urine Barbiturates Screen Neg (NEGATIVE) Urine Phencyclidine Screen Neg (NEGATIVE) Urine Amphetamines Screen Neg (NEGATIVE) Urine Benzodiazepines Screen Pos (NEGATIVE) Urine Cocaine Screen Neg (NEGATIVE) Urine Cannabinoids Screen Pos (NEGATIVE) Appearance: Stated age Psychomotor activity: WNL Behavioral: Cooperative Eye contact: Appropriate Speech: WNL Affect: Appropriate, Mood Congruent Mood: Euthymic Thought processes: Linear/Goal-directed Thought content: WNL Suicidal ideations: Absent Homicidal ideations: Absent Orientation: Person, Place, Time, Situation Memory intact: Recent Intellect: Average Abstractability: WNL Concentration: Adequate Attention: Adequate Judgement: WNL Insight: Good Vitals Vital Signs Date Time Temp Pulse Resp B/P (MAP) Pulse Ox O2 Delivery O2 Flow Rate FiO2 02/26/24 13:00 98.1 77 20 119/65 (83) 95 98.1 02/26/24 08:15 Room Air* 0 21 Current medications Current Medications Medications Dose Ordered Sig/Ahsan Route Start Time Stop Time Status Last Admin Dose Admin Hydrochlorothiazide 12.5 mg DAILY PO 02/26/24 10:00 02/26/24 12:08 12.5 MG Atorvastatin Calcium 10 mg HS PO 02/25/24 22:00 02/25/24 22:02 10 MG Albuterol 2.5 mg Q6HPRN PRN NEB 02/25/24 20:15 Buspirone HCl 15 mg Q12HR PO 02/25/24 22:00 02/26/24 12:10 15 MG Lisinopril 2.5 mg DAILY PO 02/26/24 10:00 02/26/24 12:09 2.5 MG Aspirin 162 mg DAILY PO 02/26/24 10:00 02/26/24 12:09 162 MG Ondansetron HCl 4 mg Q4HP PRN IV 02/25/24 20:15 Acetaminophen 650 mg Q6HP PRN PO 02/25/24 20:15 Nitroglycerin 0.4 mg Q5MINP PRN SL 02/25/24 20:15 Morphine Sulfate 2 mg Q30M PRN IV 02/25/24 20:15 Clopidogrel Bisulfate 75 mg DAILY PO 02/27/24 10:00 Treatment plan discussed: With staff Medication adjusted: No Labs ordered: No Psychotherapy provided: No Type: Voluntary History of Present Illness Reason for Consult : psychiatric evaluation for suicidal ideation PER ED PHYSICIAN: MedhatF PACO w/ prior Hx of Anxiety, HTN and High Lipids which all may be associated to the c/c of CP. EMS report that the pt drank some wine w/ her family when she got into a dispute with them and started to have pressure like CP on the left chest cavity at 1710. We did call Doctor Abigail and he stated that there was no Stemi. Pain Type of a 10/20. PMHx of Asthma and COPD. Social Hx of quit tobacco use 4 years ago, occasional alcohol use, and marijuana use. Family Hx of DM, HTN and Lung cancer. Denies chills, fever, N/V/D, SOB or other associated symptom's, modifiers, or recent injuries or sick contact at this time. PSYCHIATRIST HPI: The patient was seen and evaluated at [facility] via telepsychiatry platform. 58 yr old female admitted for chest pain. She reported "I'm doing good." She denied having any suicidal ideation, plan or intent. She got into a dispute with her sister about his . She said that led to some chest pain which is now better. She stated her mood has been good lately although she is under some stress of a future move of her trailer to [place] and having some chronic back pain and difficulty lifting things and walking with not much help moving. She denied having SI/HI/AVH. Past Psychiatric History : Diagnosed with depression and anxiety. Has not been to see outpatient for a couple years. Past Medical History: disc disease with difficulty walking, groin hernias, cardiac disease, HTN, high cholesterolemia Current Psychotropic Medications: Buspar 15mg BID, Celexa 10mg qam Substance use: Denied alcohol and other substance use. Social History : Lives in [place] by self in a trailer on sister's property. 33 yrs until in 2015. No children. Diagnosis: UNSPECIFIED ANXIETY DISORDER Formulation: This 58 yr old female appears to suffer from anxiety. She may benefit from continuing on her outpatient medications and does not warrant psychiatric hospitalization. Plan: 1. Safety. The patient is a low risk for self harm and may be managed as an outpatient. 2. Legal-voluntary 3. Medication: recommend Continuing Celexa 10mg qam Buspirone 15mg BID 4. Contact psychiatry if further follow up or reevaluation is desired. 5. Case discussed with HIGINIO Freitas. Assessment/Diagnosis/Plan Reviewed: Labs, Medications, Previous Orders HUNTER GARCÍA MD Feb 26, 2024 17:00
[2024-02-27 01:00] VITALS: BP 120/81; PULSE 63; RESP 17; TEMP 98.1; O2SAT 95
[2024-02-27 05:00] VITALS: BP 126/77; PULSE 70; RESP 19; TEMP 98.1; O2SAT 96
[2024-02-27 08:00] VITALS: PULSE 72; PULSE 87; RESP 16; O2SAT 96
--- NOTE | 2024-02-27 08:16 | DVHPN2 ---
Reviewed: Care Plan, H&P, Labs, Medications, Previous Orders, Radiology Changes from previous H/P or p: No Changes Objective Vitals Vital Signs Date Time Temp Pulse Resp B/P (MAP) Pulse Ox O2 Delivery O2 Flow Rate FiO2 02/27/24 05:00 98.1 70 19 126/77 (93) 96 98.1 02/26/24 20:00 Room Air* 0 21 Intake/Output Intake and Output 02/27/24 07:00 Intake Total 1820 ml Output Total 1 ml Balance 1819 ml Intake Oral 1820 ml Output Stool Total 1 ml # Voids 9 # Bowel Movements 2 Medications Current Medications Medications Dose Ordered Sig/Ahsan Route Start Time Stop Time Status Last Admin Dose Admin Hydrochlorothiazide 12.5 mg DAILY PO 02/26/24 10:00 02/26/24 12:08 12.5 MG Atorvastatin Calcium 10 mg HS PO 02/25/24 22:00 02/26/24 21:17 10 MG Albuterol 2.5 mg Q6HPRN PRN NEB 02/25/24 20:15 Buspirone HCl 15 mg Q12HR PO 02/25/24 22:00 02/26/24 21:17 15 MG Lisinopril 2.5 mg DAILY PO 02/26/24 10:00 02/26/24 12:09 2.5 MG Aspirin 162 mg DAILY PO 02/26/24 10:00 02/26/24 12:09 162 MG Ondansetron HCl 4 mg Q4HP PRN IV 02/25/24 20:15 Acetaminophen 650 mg Q6HP PRN PO 02/25/24 20:15 Nitroglycerin 0.4 mg Q5MINP PRN SL 02/25/24 20:15 Morphine Sulfate 2 mg Q30M PRN IV 02/25/24 20:15 Clopidogrel Bisulfate 75 mg DAILY PO 02/27/24 10:00 Laboratory Results Laboratory Tests 02/25/24 18:04 02/26/24 02:45 Urinalysis Test 02/26/24 14:16 Urine Color Light-yellow (Yellow) Urine Clarity Clear (Clear) Urine pH 8.0 (5.0-9.0) Urine Specific [place] 1.036 (1.001-1.035) Urine Protein Trace (Negative) H Urine Ketones Negative (Negative) Urine Blood Negative /uL (Negative) Urine Nitrite Negative (Negative) Urine Bilirubin Negative (Negative) Urine Urobilinogen Normal mg/dL (Negative) Urine Leukocyte Esterase Negative /uL (Negative) Urine RBC 1 /hpf (0 - 4) Urine WBC 4 /hpf (0 - 5) Urine Squamous Epithelial Cells Few /hpf (<5) Urine Bacteria Few /hpf (None Seen) H Urine Mucus Few (None Seen) Urine Glucose Normal mg/dL (Normal) Labs and/or images reviewed: Labs reviewed by me, Image(s) reviewed by me Assessment/Plan Assessment/Plan Chest pain secondary to coronary artery disease Non ST-elevation [place] with troponin 250, status post left heart catheterization by Dr. Shin found to have mild coronary artery disease advised aggressive risk factor management, aspirin Plavix Hypertension Hypercholesterolemia Acute COPD exacerbation Asthma Suicidal ideation and depression: Tele psych consult by Dr. Pawel To recommended no 5150 advised to continue home medication celexa and buspirone for depression and anxiety Time Spent 45 minutes Patient is full code Patient is feeling fine with stable vital signs being discharged home Plan discussed with: Patient Date of Service: Feb 27, 2024 Billing Provider: TONE UGARTE MD Common Visit Codes: [id number] INP/OBS CARE(HIGH) TONE UGARTE MD Feb 27, 2024 08:16
[2024-02-27] MEDS ORDERED: ASPI-628 PO (08:19)
[2024-02-27] MEDS ORDERED: CLOP75TA28 PO (08:19)
--- NOTE | 2024-02-27 08:22 | DVHDS2 ---
Discharge Summary Date of Admission Feb 25, 2024 at 20:08 Date of Discharge: Feb 27, 2024 Admitting Diagnosis CHEST PAIN Wounds: Left heart catheterization Labs/Diagnostic Data: Laboratory Results Test 02/26/24 14:16 02/26/24 06:39 02/26/24 02:45 02/25/24 21:05 Urine Color Light-yellow (Yellow) Urine Clarity Clear (Clear) Urine pH 8.0 (5.0-9.0) Urine Specific [place] 1.036 (1.001-1.035) Urine Protein Trace (Negative) Urine Ketones Negative (Negative) Urine Blood Negative /uL (Negative) Urine Nitrite Negative (Negative) Urine Bilirubin Negative (Negative) Urine Urobilinogen Normal mg/dL (Negative) Urine Leukocyte Esterase Negative /uL (Negative) Urine RBC 1 /hpf (0 - 4) Urine WBC 4 /hpf (0 - 5) Urine Squamous Epithelial Cells Few /hpf (<5) Urine Bacteria Few /hpf (None Seen) Urine Mucus Few (None Seen) Urine Glucose Normal mg/dL (Normal) Urine Opiates Screen Neg (NEGATIVE) Urine Fentanyl Screen Neg (NEGATIVE) Urine Barbiturates Screen Neg (NEGATIVE) Urine Phencyclidine Screen Neg (NEGATIVE) Urine Amphetamines Screen Neg (NEGATIVE) Urine Benzodiazepines Screen Pos (NEGATIVE) Urine Cocaine Screen Neg (NEGATIVE) Urine Cannabinoids Screen Pos (NEGATIVE) Triglycerides Level 90 mg/dL (< 150) Cholesterol Level 133 mg/dL (< 200) LDL Cholesterol 67 mg/dL (< 100) HDL Cholesterol 55 mg/dL (40-59) Thyroid Stimulating Hormone (TSH) 2.91 uIU/mL (0.55-4.78) Prothrombin Time 11.0 sec (9.3-11.8) Prothrombin Time INR 1.04 (0.9-1.15) Activated Partial Thromboplast Time 33.6 SEC (24.5-34.5) Sodium Level 142 mmol/L (136-145) Potassium Level 3.3 mmol/L (3.5-5.1) Chloride Level 104 mmol/L (98-107) Carbon Dioxide Level 29 mmol/L (20-31) Anion Gap 9 (5-15) Blood Urea Nitrogen 9 mg/dL (9-23) Creatinine 0.79 mg/dL (0.550-1.02) Glomerular Filtration Rate Calc 86 mL/min (>90) BUN/Creatinine Ratio 11.4 (10.0-20.0) Serum Glucose 102 mg/dL (74-106) Calcium Level 10.0 mg/dL (8.7-10.4) Beta HCG, Quantitative 5.6 mIU/mL (1.5-4.2) Troponin I High Sensitivity 246 ng/L (</=34) Test 02/25/24 18:04 White Blood Count 6.8 10^3/uL (4.4-10.8) Red Blood Count 4.08 10^6/uL (4.0-5.20) Hemoglobin 11.1 g/dL (12.2-16.2) Hematocrit 34.2 % (36.0-46.0) Mean Corpuscular Volume 83.7 fL (80.0-100.0) Mean Corpuscular Hemoglobin 27.1 pg (28.0-32.0) Mean Corpuscular Hemoglobin Concent 32.4 g/dL (32.0-36.0) Red Cell Distribution Width 17.4 % (11.8-14.3) Platelet Count 364 10^3/uL (140-450) Mean Platelet Volume 7.1 fL (6.9-10.8) Neutrophils (%) (Auto) 54.0 % (37.0-80.0) Lymphocytes (%) (Auto) 33.9 % (10.0-50.0) Monocytes (%) (Auto) 10.3 % (0.0-12.0) Eosinophils (%) (Auto) 0.6 % (0.0-7.0) Basophils (%) (Auto) 1.2 % (0.0-2.0) Neutrophils # (Auto) 3.7 10 ^3/uL (1.6-8.6) Lymphocytes # (Auto) 2.3 10 ^3/uL (0.4-5.4) Monocytes # (Auto) 0.7 10 ^3/uL (0-1.3) Eosinophils # (Auto) 0 10 ^3/uL (0-0.8) Basophils # (Auto) 0.1 10 ^3/uL (0-0.2) Nucleated Red Blood Cells 0.0 % Magnesium Level 1.6 mg/dL (1.6-2.6) Total Bilirubin 0.3 mg/dL (0.2-1.0) Aspartate Amino Transferase (AST) 20 U/L (13-40) Alanine Aminotransferase (ALT) 25 U/L (7-40) Alkaline Phosphatase 88 U/L (46-116) B-Type Natriuretic Peptide 529.64 pg/mL (0-100) Total Protein 6.3 g/dL (5.7-8.2) Albumin 4.3 g/dL (3.2-4.8) Other Laboratory Tests 02/26/24 02:45 02/25/24 18:04 Brief Hx & Hospital Course: 58-year-old female with a history of hypertension hypercholesterolemia COPD asthma depression came in complaining of chest pain troponin was slightly elevated to 50 left heart catheterization by Dr. Shin found to have mild coronary artery disease advised aggressive risk factor management and aspirin and Plavix patient was placed back on her home medication for comorbid conditions the patient expressed suicide ideation tele psych consult by Dr. Kai To recommended no 5150 advised to continue home medications Celexa and buspirone for depression and anxiety and outpatient psych follow up Time of discharge patient's vital signs are stable afebrile and she is being discharged on aspirin and Plavix she will continue all her home medications which I personally reviewed Consults/Reason for consult Cardiology Dr. Shin Operations or Procedures Left heart catheterization Condition at Discharge: Fair Final Diagnosis/Problems List Chest pain secondary to coronary artery disease Non ST-elevation [place] with troponin 250, status post left heart catheterization by Dr. Shin found to have mild coronary artery disease advised aggressive risk factor management, aspirin Plavix Hypertension Hypercholesterolemia Acute COPD exacerbation Asthma Suicidal ideation and depression: Tele psych consult by Dr. Pawel To recommended no 5150 advised to continue home medication celexa and buspirone for depression and anxiety Discharge Disposition: Home Discharge Instruct/Medications Diet: Cardiac 2g Na,low cholest Activity: Light activity Follow Up/Referral: Resume all previous home medications Use new medications as prescribed Follow up with your primary Dr in one week Follow up with the sterile process tech Dr. Shin in two weeks Medications: Aspirin Plavix Sent to [facility] (Time taken for discharge summary 35 minuteS) Discharge Statement: "Patient was advised to return to the ER or call 911 if any headaches, dizziness, shortness of breath, chest pain, abdominal pain, bleeding, fevers, or worsening of medical condition. Patient was counseled about treatment plan, medications, possible side effects, patientverbalized understanding. All questions were answered to the best of my ability. This discharge took greater then 30 minutes in planning, reviewing documentation, counseling the patient, and discussing with other team members." ASSESSMENT ASSESSMENT Hospital Course Improved Assessment Chest pain secondary to coronary artery disease Non ST-elevation [place] with troponin 250, status post left heart catheterization by Dr. Shin found to have mild coronary artery disease advised aggressive risk factor management, aspirin Plavix Hypertension Hypercholesterolemia Acute COPD exacerbation Asthma Suicidal ideation and depression: Tele psych consult by Dr. Pawel To recommended no 5150 advised to continue home medication celexa and buspirone for depression and anxiety Date of Service: Feb 27, 2024 Billing Provider: TONE UGARTE MD Common Visit Codes: [id number] DISCH DAY >30min TONE UGARTE MD Feb 27, 2024 08:22
[2024-02-27 08:40] VITALS: BP 122/83; PULSE 72; RESP 16; TEMP 97.6; O2SAT 96
[2024-02-27 08:49] VITALS: O2SAT 97
[2024-02-27] MEDS: CLOPIDOGREL BISULFATE 75 MG TAB PO SCH (09:29)
[2024-02-27 10:15] VITALS: BP 122/83; PULSE 72; RESP 16; TEMP 97.6; O2SAT 96
--- NOTE | 2024-02-27 14:48 | ECG ---
[facility] Test Date: 2024-02-25 Test Time: 20:56:37 Pat Name: MAT IVAN Department: ED Room: 0221T Gender: F Investment Underwriter: JACIEL : 1965 Requested By: JINA ALEMAN Order Number: [id number] Reading MD: Measurements Intervals [place] Rate: 74 P: 72 [place]: 171 QRS: 94 QRSD: 89 T: -78 QT: 418 QTc: 464 Interpretive Statements Sinus rhythm Right axis deviation Abnrm T, consider ischemia, anterolateral lds Please click the below link to view image of tracing.
== END 2024-02-27 10:50 | disposition home or self-care (01) | DRG 190 ==
LOC: ER 17:43 → EDBD 17:43 → TELE 20:08 → TELE-E-ADS 22:58 → TELE-CENTR 02-26 01:08
PROVIDERS: ADMIT Nurse Practitioner; ATTEND Family Medicine
PROC: 4A023N7 Measurement of Cardiac Sampling and Pressure, Left Heart, Percutaneous Approach (ICD-10-PCS; principal; 2024-02-26)
PROC: B211YZZ Fluoroscopy of Multiple Coronary Arteries using Other Contrast (ICD-10-PCS; 2024-02-26)
DX: I21.4 Non-ST elevation (NSTEMI) myocardial infarction (principal); J44.1 Chronic obstructive pulmonary disease with (acute) exacerbation; R45.851 Suicidal ideations; I25.10 Atherosclerotic heart disease of native coronary artery without angina pectoris; E78.00 Pure hypercholesterolemia, unspecified; F41.9 Anxiety disorder, unspecified; I10 Essential (primary) hypertension; G89.29 Other chronic pain; F32.A Depression, unspecified; Z82.49 Family history of ischemic heart disease and other diseases of the circulatory system; Z83.3 Family history of diabetes mellitus; Z80.1 Family history of malignant neoplasm of trachea, bronchus and lung; Z88.8 Allergy status to other drugs, medicaments and biological substances; Z87.891 Personal history of nicotine dependence
CPT/HCPCS: 36415; 71045; 80048; 80053; 80061; 80307; 81001; 83735; 83880; 84443; 84484; 84702; 85025; 85610; 85730; 93005; 93306; 93458; 99152; 99291; G0378; J2250; Q9967

== ENCOUNTER 2024-04-06 15:07 | Emergency (ER) | payer MEDICAID ==
[~2024-04-06] VITALS: Ht 165.1 cm; Wt 87.5 kg
[~2024-04-06 15:07] MED LIST: ASPI-628 PO; ATOR10TA52 PO; BUSP15TA60 PO; CITA10TA5 PO; CLOP75TA28 PO; FAMO40TA7 PO; HYDR12.59 PO; IBUP-1455 PO
[2024-04-06] MEDS: KETOROLAC TROMETH 30 MG/ML 1ML VIAL IV ONE (15:15)
[2024-04-06 15:31] LABS: Basophils # (auto) 0.1 10 ^3/uL (0-0.2); Eosinophils # (auto) 0 10 ^3/uL (0-0.8); Eosinophils % (auto) 0.3 % (0.0-7.0); Hematocrit 38.5 % (36.0-46.0); Hemoglobin 12.8 g/dL (12.2-16.2); Lymphocytes # (auto) 2.6 10 ^3/uL (0.4-5.4); Lymphocytes % (auto) 26.7 % (10.0-50.0); Mean Corpuscular Hgb Conc. 33.3 g/dL (32.0-36.0); Monocytes % (auto) 9.9 % (0.0-12.0); Neutrophils # (auto) 6.2 10 ^3/uL (1.6-8.6); Neutrophils % (auto) 62.1 % (37.0-80.0); Platelet Count (auto) 373 10^3/uL (140-450); Red Blood Cells 4.58 10^6/uL (4.0-5.20); Red Cell Distribution Width 19.2 % (11.8-14.3); White Blood Cell 9.9 10^3/uL (4.4-10.8)
[2024-04-06 15:41] LABS: Chloride 103 mmol/L (98-107); Sodium 139 mmol/L (136-145)
[2024-04-06 15:42] LABS: Anion Gap 13 (5-15); Carbon Dioxide 23 mmol/L (20-31)
[2024-04-06 15:43] LABS: Potassium 3.4 mmol/L (3.5-5.1)
[2024-04-06 15:44] VITALS: TEMP 98.1
[2024-04-06 15:45] VITALS: PULSE 80; RESP 20; O2SAT 95
[2024-04-06 15:47] LABS: BUN/Creatinine Ratio 14.9 (10.0-20.0); Blood Urea Nitrogen 15 mg/dL (9-23); Glucose 95 mg/dL (74-106)
--- NOTE | 2024-04-06 15:47 | DVH ---
EXAM: XR Chest, 1 View CLINICAL INDICATION: Left-sided chest pain TECHNIQUE: Frontal view of the chest. COMPARISON: XY CHEST PORTABLE on DOS: 02/25/24 FINDINGS: LUNGS AND PLEURAL SPACES: Unremarkable. No consolidation. No pneumothorax. HEART: Unremarkable. No cardiomegaly. MEDIASTINUM: Unremarkable. Normal mediastinal contour. BONES/JOINTS: Unremarkable. No acute fracture. OTHER FINDINGS: . . IMPRESSION: No acute cardiopulmonary process.
--- NOTE | 2024-04-06 16:39 | ECG ---
[facility] Test Date: 2024-04-06 Test Time: 15:10:01 Pat Name: MAT IVAN Department: ER Room: Gender: F Operations Logistics Analyst: AKOSUA : 1965 Requested By: TAMEKA BELLO Order Number: [id number] Reading MD: Measurements Intervals [place] Rate: 88 P: 74 [place]: 163 QRS: 98 QRSD: 93 T: 195 QT: 383 QTc: 464 Interpretive Statements Sinus rhythm Right axis deviation Abnormal T, consider ischemia, diffuse leads Please click the below link to view image of tracing.
--- NOTE | 2024-04-06 17:58 | ED.PDOC ---
HPI Comments 58-year-old female presents with a chief complaint of chest pain. Patient states that she was recently here for a AK and was discharged. Patient reports that she is anxious and that she has been drinking a lot of vodka. No other symptoms or modifying factors present at this time. Chief Complaint: Chest Pain Time Seen by MD: 17:57 Primary Care Provider: Johnny Chilel Notes: Medications, Allergies Allergies: Coded Allergies: Niacin (Verified Allergy, Unknown, 02/25/24) Melatonin (Verified Adverse Reaction, Severe, 02/27/24) whole body/face swelling Home Meds Active Scripts Clopidogrel Bisulfate (Plavix) 75 Mg Tab, 1 TAB PO DAILY, #90 TAB 1 Refill Prov:TONE UGARTE MD 02/27/24 Aspirin (Aspirin Adult Low Dose) 81 Mg Tab, 81 MG PO DAILY, #90 TAB Prov:TONE UGARTE MD 02/27/24 Reported Medications Famotidine (Famotidine) 40 Mg Tab, 1 TAB PO DAILY 02/26/24 Citalopram Hydrobromide (Citalopram Hydrobromide) 10 Mg Tab, 1 TAB PO DAILY 02/26/24 Ibuprofen Micronized (Ibuprofen) 800 Mg Tab, 1 TAB PO Q8HPRN for PAIN SCALE 1 THRU 6 02/26/24 Buspirone Hcl (Buspirone Hcl) 15 Mg Tab, 1 TAB PO BIDPRN PRN for anxiety 02/26/24 Atorvastatin Calcium (ATORVASTATIN CALCIUM) 10 Mg Tab, 1 TAB PO DAILY 02/26/24 Hydrochlorothiazide (Hydrochlorothiazide) 12.5 Mg Cap, 1 CAP PO QAM 02/26/24 Information Source: Patient, Emergency Med Personnel Mode of Arrival: EMS Severity: Moderate Timing: Days Duration: Intermittent Prehospital treatment: None Location: Substernal Radiation: No Radiation Quality: Sharp Onset: At Rest History of: Similar pain in past, [place] Past Medical History PAST MEDICAL HISTORY: Anxiety, Asthma, COPD, High Lipids, HTN Surgical History: Denies all surgeries NEWSPAPER ILLUSTRATOR History: No Pertinent NEWSPAPER ILLUSTRATOR History Family History Family History: Reviewed,noncontributory to illness, Family hx of DM, Family hx of Cancer, Family hx of HTN Social History Smoker: Quit Greater Than 1 Year Alcohol: Occasionally Drugs: Marijuana Lives In: Home Constitutional: denies: chills, diaphoresis, fatigue, fever, malaise, sweats, weakness, others EENTM: denies: blurred vision, double vision, ear bleeding, ear discharge, ear drainage, ear pain, ear ringing, eye pain, eye redness, hearing loss, mouth pain, mouth swelling, nasal discharge, nose bleeding, nose congestion, nose pain, photophobia, tearing, throat pain, throat swelling, voice changes, others Respiratory: denies: cough, hemoptysis, orthopnea, SOB at rest, shortness of breath, SOB with excertion, stridor, wheezing, others Cardiovascular: reports: chest pain; denies: dizzy spells, diaphoresis, Dyspnea on exertion, edema, irregular heart beat, left arm pain, lightheadedness, palpitations, PND, syncope, others Gastrointestinal: denies: abdomen distended, abdominal pain, blood streaked bowels, constipated, diarrhea, dysphagia, difficulty swallowing, hematemesis, melena, nausea, poor appetite, poor fluid intake, rectal bleeding, rectal pain, vomiting, others Genitourinary: denies: abnormal vagina bleeding, burning, dyspareunia, dysuria, flank pain, frequency, hematuria, incontinence, pain, , vagina discharge, urgency, others Neurological: denies: dizziness, fainting, headache, left sided numbness, left sided weakness, numbness, paresthesia, pre-existing deficit, right sided numbness, right sided weakness, seizure, speech problems, tingling, tremors, weakness, others Musculoskeletal: denies: back pain, gout, joint pain, joint swelling, muscle pain, muscle stiffness, neck pain, others Integumetry: denies: bruises, change in color, change in hair/nails, dryness, laceration, lesions, lumps, rash, wounds, others Allergic/Immunocompromised: denies: Difficulty Healing, Frequent Infections, Hives, Itching, others Hematologic/Lymphatic: denies: anemia, blood clots, easy bleeding, easy bruising, swollen glands, others Endocrine: denies: excessive hunger, excessive sweating, excessive thirst, excessive urination, flushing, intolerance to cold, intolerance to heat, unexplained weight gain, unexplained weight loss, others Psychiatric: reports: anxiety; denies: bipolar disorder, depression, hopeless, panic disorder, schizophrenia, sleepless, suicidal, others All Other Systems: Reviewed and Negative Physical Exam General Appearance: No Apparent Distress, Normal HEENT: Normal ENT Inspection, Pharynx Normal, TMs Normal Neck: Full Range of Motion, Non-Tender, Normal, Normal Inspection Respiratory: Chest Non-Tender, Lungs Clear, No Accessory Muscle Use, No Respiratory Distress, Normal Breath Sounds Cardiovascular: No Edema, No JVD, No Murmur, No Gallop, Normal Peripheral Pulses, Regular Rate/Rhythm Breast Exam: Deferred Gastrointestinal: No Organomegaly, Non Tender, No Pulsatile Mass, Normal Bowel Sounds, Soft Genitalia: Deferred Pelvic: Deferred Rectal: Deferred Extremities: No calf tenderness, Normal capillary refill, Normal inspection, Normal range of motion, Non-tender, No pedal edema Musculoskeletal : Apperance: Normal Neurologic: Alert, packaging technician II-XII nml as Tested, No Motor Deficits, Normal Affect, Normal Mood, No Sensory Deficits Cerebellar Function: Normal Reflexes: Normal Skin: Dry, Normal Color, Warm Lymphatic: No Adenopathy Was a procedure done? Was a procedure done?: No CP Differential Dx Differential Diagnosis: AK Differential Diagnosis: CHF X-Ray, Labs, Meds, VS Vital Signs Date Time Temp Pulse Resp B/P (MAP) Pulse Ox O2 Delivery O2 Flow Rate FiO2 04/06/24 17:08 85 20 124/72 (89) 97 04/06/24 17:00 84 04/06/24 15:45 80 20 95 Room Air* 0 21 04/06/24 15:44 98.1 80 18 124/72 (89) 95 98.1 04/06/24 15:17 97.5 108 16 133/68 (89) 94 04/06/24 15:10 88 Lab Test 04/06/24 16:31 04/06/24 15:25 Range/Units Troponin I High Sensitivity 13 13 </=34 ng/L White Blood Count 9.9 4.4-10.8 10^3/uL Red Blood Count 4.58 4.0-5.20 10^6/uL Hemoglobin 12.8 12.2-16.2 g/dL Hematocrit 38.5 36.0-46.0 % Mean Corpuscular Volume 84.0 80.0-100.0 fL Mean Corpuscular Hemoglobin 28.0 28.0-32.0 pg Mean Corpuscular Hemoglobin Concent 33.3 32.0-36.0 g/dL Red Cell Distribution Width 19.2 H 11.8-14.3 % Platelet Count 373 140-450 10^3/uL Mean Platelet Volume 7.2 6.9-10.8 fL Neutrophils (%) (Auto) 62.1 37.0-80.0 % Lymphocytes (%) (Auto) 26.7 10.0-50.0 % Monocytes (%) (Auto) 9.9 0.0-12.0 % Eosinophils (%) (Auto) 0.3 0.0-7.0 % Basophils (%) (Auto) 1.0 0.0-2.0 % Neutrophils # (Auto) 6.2 1.6-8.6 10 ^3/uL Lymphocytes # (Auto) 2.6 0.4-5.4 10 ^3/uL Monocytes # (Auto) 1.0 0-1.3 10 ^3/uL Eosinophils # (Auto) 0 0-0.8 10 ^3/uL Basophils # (Auto) 0.1 0-0.2 10 ^3/uL Nucleated Red Blood Cells 0.0 % Sodium Level 139 136-145 mmol/L Potassium Level 3.4 L 3.5-5.1 mmol/L Chloride Level 103 98-107 mmol/L Carbon Dioxide Level 23 20-31 mmol/L Anion Gap 13 5-15 Blood Urea Nitrogen 15 9-23 mg/dL Creatinine 1.01 0.550-1.02 mg/dL Glomerular Filtration Rate Calc 64 >90 mL/min BUN/Creatinine Ratio 14.9 10.0-20.0 Serum Glucose 95 74-106 mg/dL Calcium Level 10.0 8.7-10.4 mg/dL Current Medications Medications (Trade) Dose Ordered Sig/Ahsan Route Start Time Stop Time Status Last Admin Ketorolac Tromethamine (Toradol Injection) 30 mg ONCE ONCE IV 04/06/24 15:15 04/06/24 15:16 DC 04/06/24 15:15 X-Ray, Labs, Meds, VS Comment Please disregard this chart. Please utilize the completed chart signed on the same date. Time of 1ST Reevaluation: 18:15 Reevaluation 1ST: Improved Consultation: PCP, Cardiology Patient Education/Counseling: Diagnosis, Treatment, Prognosis Family Education/Counseling: Diagnosis, Treatment, Prognosis Departure 1 Departure Time of Disposition: 18:15 Impression: Primary Impression: Costochondritis Disposition: HOME / SELF CARE / HOMELESS Condition: Stable Additional Instructions: Please disregard this sharp. Utilize the other chart signed and documented on the same day. Discharged With: Self, Friend Critical Care Note Critical Care Time?: No Stability Stability form required: No Heart Score Heart Score: Heart Score Response (Comments) Value History Slightly Suspicious 0 EKG Normal 0 Age 45-64 1 Risk Factors 1 or 2 risk factors 1 Troponin Normal limit 0 Total 2 I personally scribed for TAMEKA BELLO PAC ([email or web address]) on 04/06/24 at 17:58. Electronically submitted by Chucky Jain ([email or web address]). TAMEKA BELLO PAC Apr 06, 2024 17:58
[2024-04-06 18:00] VITALS: BP 119/84; PULSE 74; RESP 20; O2SAT 97
--- NOTE | 2024-04-06 18:05 | ED.PDOC ---
HPI Comments This patient is a pleasant but morbidly obese 58-year-old female who arrives to the ED today for evaluation of left-sided chest pain concerns that began approximately 1 hour prior to arrival. Patient has a history of cardiac concerns as well as anxiety. Patient states that she misplaced her life Alert button and became panicked and subsequent to that, started experienced chest pain concerns. Patient denies any fever nausea or vomiting. Patient states the chest pain is point specific on the left-sided chest the midclavicular line between ribs five and six. Vital signs were stable on arrival. Chief Complaint: Chest Pain Time Seen by MD: 15:09 Primary Care Provider: Johnny Reviewed Notes: Nurses Notes, Interior Design Teacher Notes Allergies: Coded Allergies: Niacin (Verified Allergy, Unknown, 02/25/24) Melatonin (Verified Adverse Reaction, Severe, 02/27/24) whole body/face swelling Home Meds Active Scripts Clopidogrel Bisulfate (Plavix) 75 Mg Tab, 1 TAB PO DAILY, #90 TAB 1 Refill Prov:TONE UGARTE MD 02/27/24 Aspirin (Aspirin Adult Low Dose) 81 Mg Tab, 81 MG PO DAILY, #90 TAB Prov:TONE UGARTE MD 02/27/24 Reported Medications Famotidine (Famotidine) 40 Mg Tab, 1 TAB PO DAILY 02/26/24 Citalopram Hydrobromide (Citalopram Hydrobromide) 10 Mg Tab, 1 TAB PO DAILY 02/26/24 Ibuprofen Micronized (Ibuprofen) 800 Mg Tab, 1 TAB PO Q8HPRN for PAIN SCALE 1 THRU 6 02/26/24 Buspirone Hcl (Buspirone Hcl) 15 Mg Tab, 1 TAB PO BIDPRN PRN for anxiety 02/26/24 Atorvastatin Calcium (ATORVASTATIN CALCIUM) 10 Mg Tab, 1 TAB PO DAILY 02/26/24 Hydrochlorothiazide (Hydrochlorothiazide) 12.5 Mg Cap, 1 CAP PO QAM 02/26/24 Information Source: Patient, Emergency Med Personnel Mode of Arrival: EMS Severity: Moderate Timing: Hours Duration: Since onset Prehospital treatment: None Location: Chest (L) Radiation: No Radiation Quality: Sharp, Stabbing Onset: At Rest Cardiac Risk Factors: Smoker, Other (Anxiety) PE Risk Factors: None History of: Similar pain in past, [place] Past Medical History PAST MEDICAL HISTORY: Anxiety, Asthma, COPD, High Lipids, HTN Surgical History: Denies all surgeries SORTING MACHINE ATTENDANT History: No Pertinent SORTING MACHINE ATTENDANT History Family History Family History: Reviewed,noncontributory to illness, Family hx of DM, Family hx of Cancer, Family hx of HTN Social History Smoker: Quit Greater Than 1 Year Alcohol: Occasionally Drugs: Marijuana Lives In: Home Constitutional: denies: chills, diaphoresis, fatigue, fever, malaise, sweats, weakness, others EENTM: denies: blurred vision, double vision, ear bleeding, ear discharge, ear drainage, ear pain, ear ringing, eye pain, eye redness, hearing loss, mouth pain, mouth swelling, nasal discharge, nose bleeding, nose congestion, nose pain, photophobia, tearing, throat pain, throat swelling, voice changes, others Respiratory: denies: cough, hemoptysis, orthopnea, SOB at rest, shortness of breath, SOB with excertion, stridor, wheezing, others Cardiovascular: reports: chest pain; denies: dizzy spells, diaphoresis, Dyspnea on exertion, edema, irregular heart beat, left arm pain, lightheadedness, palpitations, PND, syncope, others Gastrointestinal: denies: abdomen distended, abdominal pain, blood streaked bowels, constipated, diarrhea, dysphagia, difficulty swallowing, hematemesis, melena, nausea, poor appetite, poor fluid intake, rectal bleeding, rectal pain, vomiting, others Genitourinary: denies: abnormal vagina bleeding, burning, dyspareunia, dysuria, flank pain, frequency, hematuria, incontinence, pain, , vagina discharge, urgency, others Neurological: denies: dizziness, fainting, headache, left sided numbness, left sided weakness, numbness, paresthesia, pre-existing deficit, right sided numbness, right sided weakness, seizure, speech problems, tingling, tremors, weakness, others Musculoskeletal: denies: back pain, gout, joint pain, joint swelling, muscle pain, muscle stiffness, neck pain, others Integumetry: denies: bruises, change in color, change in hair/nails, dryness, laceration, lesions, lumps, rash, wounds, others Allergic/Immunocompromised: denies: Difficulty Healing, Frequent Infections, Hives, Itching, others Hematologic/Lymphatic: denies: anemia, blood clots, easy bleeding, easy bruising, swollen glands, others Endocrine: denies: excessive hunger, excessive sweating, excessive thirst, excessive urination, flushing, intolerance to cold, intolerance to heat, unexplained weight gain, unexplained weight loss, others Psychiatric: denies: anxiety, bipolar disorder, depression, hopeless, panic disorder, schizophrenia, sleepless, suicidal, others Physical Exam General Appearance: Moderate Distress ([id number] distress due to pain and anxiety concerns.), Obese HEENT: Normal ENT Inspection, Pharynx Normal, TMs Normal Neck: Full Range of Motion, Non-Tender, Normal, Normal Inspection Respiratory: Lungs Clear, No Accessory Muscle Use, No Respiratory Distress, Normal Breath Sounds, Other (Patient displays point specific tenderness to palpation in the left-sided chest at the midclavicular line between ribs six and seven. No signs of trauma. No pulsatile masses. No crepitus.) Cardiovascular: No Edema, No JVD, No Murmur, No Gallop, Normal Peripheral Pulses, Regular Rate/Rhythm Breast Exam: Deferred Gastrointestinal: No Organomegaly, Non Tender, No Pulsatile Mass, Normal Bowel Sounds, Soft Genitalia: Deferred Pelvic: Deferred Rectal: Deferred Extremities: No calf tenderness, Normal capillary refill, Normal inspection, Normal range of motion, Non-tender, No pedal edema Neurologic: Alert, No Motor Deficits, Normal Affect, Normal Mood, No Sensory Deficits Cerebellar Function: Normal Reflexes: Normal Skin: Dry, Normal Color, Warm Lymphatic: No Adenopathy Was a procedure done? Was a procedure done?: No CP Differential Dx Differential Diagnosis: A-fib, A-Flutter, Anxiety / Panic Attack, Atrial Dysrhythmia, AV Block 1st Degree, [place], Other (Costochondritis, anxiety, chest pain) X-Ray, Labs, Meds, VS Vital Signs Date Time Temp Pulse Resp B/P (MAP) Pulse Ox O2 Delivery O2 Flow Rate FiO2 04/06/24 17:08 85 20 124/72 (89) 97 04/06/24 17:00 84 04/06/24 15:45 80 20 95 Room Air* 0 21 04/06/24 15:44 98.1 80 18 124/72 (89) 95 98.1 04/06/24 15:17 97.5 108 16 133/68 (89) 94 04/06/24 15:10 88 Lab Test 04/06/24 16:31 04/06/24 15:25 Range/Units Troponin I High Sensitivity 13 13 </=34 ng/L White Blood Count 9.9 4.4-10.8 10^3/uL Red Blood Count 4.58 4.0-5.20 10^6/uL Hemoglobin 12.8 12.2-16.2 g/dL Hematocrit 38.5 36.0-46.0 % Mean Corpuscular Volume 84.0 80.0-100.0 fL Mean Corpuscular Hemoglobin 28.0 28.0-32.0 pg Mean Corpuscular Hemoglobin Concent 33.3 32.0-36.0 g/dL Red Cell Distribution Width 19.2 H 11.8-14.3 % Platelet Count 373 140-450 10^3/uL Mean Platelet Volume 7.2 6.9-10.8 fL Neutrophils (%) (Auto) 62.1 37.0-80.0 % Lymphocytes (%) (Auto) 26.7 10.0-50.0 % Monocytes (%) (Auto) 9.9 0.0-12.0 % Eosinophils (%) (Auto) 0.3 0.0-7.0 % Basophils (%) (Auto) 1.0 0.0-2.0 % Neutrophils # (Auto) 6.2 1.6-8.6 10 ^3/uL Lymphocytes # (Auto) 2.6 0.4-5.4 10 ^3/uL Monocytes # (Auto) 1.0 0-1.3 10 ^3/uL Eosinophils # (Auto) 0 0-0.8 10 ^3/uL Basophils # (Auto) 0.1 0-0.2 10 ^3/uL Nucleated Red Blood Cells 0.0 % Sodium Level 139 136-145 mmol/L Potassium Level 3.4 L 3.5-5.1 mmol/L Chloride Level 103 98-107 mmol/L Carbon Dioxide Level 23 20-31 mmol/L Anion Gap 13 5-15 Blood Urea Nitrogen 15 9-23 mg/dL Creatinine 1.01 0.550-1.02 mg/dL Glomerular Filtration Rate Calc 64 >90 mL/min BUN/Creatinine Ratio 14.9 10.0-20.0 Serum Glucose 95 74-106 mg/dL Calcium Level 10.0 8.7-10.4 mg/dL Current Medications Medications (Trade) Dose Ordered Sig/Ahsan Route Start Time Stop Time Status Last Admin Ketorolac Tromethamine (Toradol Injection) 30 mg ONCE ONCE IV 04/06/24 15:15 04/06/24 15:16 DC 04/06/24 15:15 X-Ray, Labs, Meds, VS Comment All studies performed the ED were reviewed by me personally. EKG was remarkable for a sinus rhythm with a rate of 88, right axis deviation, possible anterior ischemic concerns with a WA interval of 163 and a QT interval of 383. Laboratories were unremarkable for any systemic or cardiac related process and chest x-ray was unremarkable for any consolidation or fibrosis concerns. Patient appears to be suffering from a costochondritis event. Patient had good relief of symptoms status post medication dispensed. Advised patient to utilize her anxiety medication as needed as well as anti-inflammatory agents for the next few days. Time of 1ST Reevaluation: 18:04 Reevaluation 1ST: Improved Consultation: PCP, Cardiology, Psychiatry Patient Education/Counseling: Diagnosis, Treatment Family Education/Counseling: Diagnosis, Treatment Departure 1 Departure Time of Disposition: 18:04 Impression: Primary Impression: Costochondritis Disposition: 01 HOME / SELF CARE / HOMELESS Condition: Stable Additional Instructions: Advise utilizing medication for the next few days for her costochondritis event. Patient states she has ibuprofen available at home. Advised follow up with the primary care provider for discussions related to anxiety management. Discharged With: Self, Friend Critical Care Note Critical Care Time?: No Stability Stability form required: No Heart Score Heart Score: Heart Score Response (Comments) Value History Slightly Suspicious 0 EKG Normal 0 Age 45-64 1 Risk Factors 1 or 2 risk factors 1 Troponin Normal limit 0 Total 2 TAMEKA BELLO PAC Apr 06, 2024 18:05
== END 2024-04-06 18:22 | disposition home or self-care (01) ==
LOC: EDBD 15:07 → EDUNIT# 15:07 → ER 15:07
DX: M94.0 Chondrocostal junction syndrome [Tietze] (principal); J45.909 Unspecified asthma, uncomplicated; E78.5 Hyperlipidemia, unspecified; I10 Essential (primary) hypertension; F12.90 Cannabis use, unspecified, uncomplicated; Z88.8 Allergy status to other drugs, medicaments and biological substances; Z79.899 Other long term (current) drug therapy; Z79.84 Long term (current) use of oral hypoglycemic drugs
CPT/HCPCS: 36415; 71045; 80048; 84484; 85025; 93005; 96374; 99285; J1885

== ENCOUNTER 2024-09-06 13:19 | Emergency (ER) | payer MEDICAID ==
[~2024-09-06] VITALS: Ht 165.1 cm; Wt 79.5 kg
--- NOTE | 2024-09-06 13:27 | ED.PDOC ---
Back pain HPI HPI Comments 58y F who presents to the ED via EMS for chief complaint of back pain. - pt states she was out at 0500 this AM talking a walk - pt states she normally takes laps around her property and states after 1 lap, she started to have shortness of breath with associated lower back pain - pt states she waited and states her lower pain started to exacerbate and called EMS to the scene - EMS arrived on scene with noted in her lower back with pain radiating to the L lower leg and bilateral lower extremities - pt was given 50 mcg of fentanyl with otherwise stable vitals and brought to the ED for further evaluation - pt in the ED, has noted lower back pain with noted exacerbation of pain to her L Leg. - pt has history of herniated disc from L1 to L5 from many years ago and has been dealing with chronic back pain since - pt otherwise denies any other symptoms at this time past medical history: anxiety,PR, herniated disc, alcoholism, HLD, HTN Past surgical history: cataracts allergies: niacin, melatonin medications: celexa, HCTZ, ibuprofen social history: denies tobacco use, endorses ETOH use, endorses drug use HPI: Poor Historian. Past Medical History: Past Surgical History: REVIEW OF SYSTEMS: CONSTITUTIONAL: Denies acute: fever, diaphoresis, chills, generalized weakness. HEAD: Denies acute: headache, photophobia Eyes: Denies acute: Double vision, vision loss, eye pain, eye discharge. EARS: Denies acute: tinnitus, hearing loss, ear discharge, ear pain, THROAT: Denies acute: sore throat, swelling, difficulty swallowing , pain with swallowing, change in voice. NECK: Denies acute: neck pain, neck swelling, stiff neck. HEART: Denies acute : chest pain, palpitations, LUNGS: Denies acute: SOB, wheezing, cough, hemoptysis ABDOMEN: Denies acute: abdominal pain, Nausea, Vomiting, diarrhea, melena , hematemesis, hematochezia SKIN: Denies acute: rash, redness, lesions, itchiness. EXTREMITIES: Denies acute: calf pain, numbness, tingling, weakness, denies pain in extremity. Neuro: Denies acute: focal neurological deficit, motor or sensory focal neurological deficit, tremors, seizure like activity, confusion, dizziness, change in mental status, loss of bowel or bladder function, cauda equina like symptoms. : Denies acute: dysuria, hematuria, flank pain, increase in urinary frequency. PSYCH: Denies acute: hallucination, suicidal ideation, homicidal ideation. FEMALE: Denies acute: abnormal vaginal bleeding, foul odor, unusual discharge. PHYSICAL EXAM: General: ----mild----acute distress, awake and alert. Head: normocephalic, atraumatic. Neck: supple, trachea is midline, no swelling. Throat: Normal phonation. Eyes:, no erythema, no purulent discharge, no proptosis, no icterus. Heart: regular rate, regular rhythm, no significant murmur appreciated. Lungs: no apparent respiratory distress, Able to speak in full sentences. No wheezing, no rhonchi, no crackles. No stridors Clear to auscultation bilaterally. Abdomen: non tender to palpation, non distended, soft, no guarding, no rebound, + bowel sounds. Patient points specifically to her posterior iliac crest where her pain is. Neuro: Awake, Alert, oriented to name, self, situation, follows commands GCS=15. Speech is normal. Skin: no petechia, no purpura, no cyanosis, non-pale, not jaundice. Lower extremities: --no - Pitting edema no deformity, no focal swelling, no calf TTP. Makes eye contact. moves all four extremities. Face: no apparent facial droop. Ambulating in the ED independently. ED COURSE: DISCLAIMER: This medical document was created using an electronic medical record system with voice recognition software and computerized dictation system. Although this document has been carefully reviewed, there might still be some phonetic and typographical errors. Occasional wrong-word or "sound-alike" substitutions may have occurred due to the inherent limitations of voice recognition software. These areas are purely typographical due to imperfections of the software programs and do not reflect any compromise in the patient's medical care. Please read the chart carefully and recognize, using context, where these substitutions have occurred. Time Seen by MD: 13:25 Primary Care Provider: Johnny Reviewed Notes: Tissue Inserter Notes, Medications, Allergies Allergies: Coded Allergies: Niacin (Verified Allergy, Unknown, 02/25/24) Melatonin (Verified Adverse Reaction, Severe, 02/27/24) whole body/face swelling Home Meds Active Scripts Clopidogrel Bisulfate (Plavix) 75 Mg Tab, 1 TAB PO DAILY, #90 TAB 1 Refill Prov:TONE UGARTE MD 02/27/24 Aspirin (Aspirin Adult Low Dose) 81 Mg Tab, 81 MG PO DAILY, #90 TAB Prov:TONE UGARTE MD 02/27/24 Reported Medications Famotidine (Famotidine) 40 Mg Tab, 1 TAB PO DAILY 02/26/24 Citalopram Hydrobromide (Citalopram Hydrobromide) 10 Mg Tab, 1 TAB PO DAILY 02/26/24 Ibuprofen Micronized (Ibuprofen) 800 Mg Tab, 1 TAB PO Q8HPRN for PAIN SCALE 1 THRU 6 02/26/24 Buspirone Hcl (Buspirone Hcl) 15 Mg Tab, 1 TAB PO BIDPRN PRN for anxiety 02/26/24 Atorvastatin Calcium (ATORVASTATIN CALCIUM) 10 Mg Tab, 1 TAB PO DAILY 02/26/24 Hydrochlorothiazide (Hydrochlorothiazide) 12.5 Mg Cap, 1 CAP PO QAM 02/26/24 Information Source: Patient, Emergency Med Personnel Mode of Arrival: EMS Past Medical History PAST MEDICAL HISTORY: Anxiety, Asthma, COPD, High Lipids, HTN Surgical History: Denies all surgeries FACULTY I ON CALL MEDICAL ASSISTANT History: No Pertinent FACULTY I ON CALL MEDICAL ASSISTANT History Family History Family History: Reviewed,noncontributory to illness, Family hx of DM, Family hx of Cancer, Family hx of HTN Social History Smoker: Quit Greater Than 1 Year Alcohol: Occasionally Drugs: Marijuana Lives In: Home Was a procedure done? Was a procedure done?: No X-Ray, Labs, Meds, VS Vital Signs Date Time Temp Pulse Resp B/P (MAP) Pulse Ox O2 Delivery O2 Flow Rate FiO2 09/06/24 17:20 97.7 72 16 122/79 (93) 97 97.7 09/06/24 15:19 97.9 67 19 102/61 (75) 97 97.9 09/06/24 13:36 97.8 75 16 137/71 (93) 98 97.8 Current Medications Medications (Trade) Dose Ordered Sig/Ahsan Route Start Time Stop Time Status Last Admin Dexamethasone Sodium Phosphate (Decadron Injection) 10 mg ONCE ONCE IV 09/06/24 13:30 09/06/24 13:35 DC 09/06/24 14:31 Ketorolac Tromethamine (Toradol Injection) 15 mg ONCE ONCE IV 09/06/24 13:30 09/06/24 13:35 DC 09/06/24 14:30 Acetaminophen/ Hydrocodone Bitart ([place] 5/325MG Tab) 1 tab ONCE ONCE PO 09/06/24 13:30 09/06/24 13:35 DC 09/06/24 14:31 [place] [address] Ph: [phone] DIAGNOSTIC IMAGING Diagnostic Imaging Report : [id number] Signed PATIENT: MAT IVAN ACCT: [id number] UNIT: [id number] : 1965 LOC: ER ROOM / BED: / AGE / SEX: 58 / F ADM STATUS: REG ER SERVICE 1322 ORDERING PHYSICIAN: ARIS SALAZAR DO PROCEDURE(s): LS2CT - LS SPINE WO CONTRAST REASON: LOW BACK PAIN ORDER NUMBER(s): [id number], ACCESSION NUMBER(s): [id number] EXAM: CT LS SPINE WO CONTRAST HISTORY: LOW BACK PAIN COMPARISON: None CTDIvol 29.74 mGy, DLP 878.52 mGy*cm. TECHNIQUE: Multiple axial CT images of the spine were obtained using bone algorithm. Axial and coronal reformatting was done. Bone and soft tissue windows were reviewed. FINDINGS: No evidence of definite acute fracture, spinal dislocation, or significant ken earing acute subluxation is seen. Few punctate nonobstructing left renal stones in the left upper pole, partially imaged. [id number] canal stenosis at L2-L3. Moderate stenosis at L3-L4 and L4-L5. IMPRESSION: No definite CT evidence of acute fracture or dislocation of the bony lumbar spine. ATED BY: MAIN VELASQUEZ MD DICTATED DATE/TIME: 09/06/241445 SIGNED BY: MAIN VELASQUEZ MD SIGNED DATE/TIME: 09/06/241445 CC: Time of 1ST Reevaluation: 17:28 Reevaluation 1ST: Resolved Patient Education/Counseling: Diagnosis, Treatment Family Education/Counseling: No Family Present Departure 1 Departure Time of Disposition: 17:28 Impression: Primary Impression: Low back pain Disposition: 01 HOME / SELF CARE / HOMELESS Condition: Stable Additional Instructions: Additional instructions: You MUST follow-up with your primary care/family doctor in 1 to 2 days. If you are unable to see your primary care/family doctor, please return to our emergency room for re-assessment and re-evaluation in 1 to 2 days. Return to the emergency room here in our facility or to the nearest ER EB if your symptoms change or worsen. CONSULTATIONS: you MUST Follow-up for consultation as soon as possible with: -orthopedic doctor in 1-2 days. Please call for appointment. You MUST call the consultants office yourself to make an appointment. You may need to arrange that through your insurance and/or your primary/family doctor. If you are unable to see the budget consultant in 1 to 2 days, you must return to our emergency room (or any other ER of your choice) for re-assessment and re- evaluation. Adequate fluid hydration. No heavy lifting. Below is a copy of your radiological report for follow up: [place] [address] Ph: [phone] DIAGNOSTIC IMAGING Diagnostic Imaging Report : [id number] Signed PATIENT: MAT IVAN ACCT: [id number] UNIT: [id number] : 1965 LOC: ER ROOM / BED: / AGE / SEX: 58 / F ADM STATUS: REG ER SERVICE 1322 ORDERING PHYSICIAN: ARIS SALAZAR DO PROCEDURE(s): LS2CT - LS SPINE WO CONTRAST REASON: LOW BACK PAIN ORDER NUMBER(s): [id number], ACCESSION NUMBER(s): [id number] EXAM: CT LS SPINE WO CONTRAST HISTORY: LOW BACK PAIN COMPARISON: None CTDIvol 29.74 mGy, DLP 878.52 mGy*cm. TECHNIQUE: Multiple axial CT images of the spine were obtained using bone algorithm. Axial and coronal reformatting was done. Bone and soft tissue windows were reviewed. FINDINGS: No evidence of definite acute fracture, spinal dislocation, or significant appearing acute subluxation is seen. Few punctate nonobstructing left renal stones in the left upper pole, partially imaged. [id number] canal stenosis at L2-L3. Moderate stenosis at L3-L4 and L4-L5. IMPRESSION: No definite CT evidence of acute fracture or dislocation of the bony lumbar spine. ATED BY: MAIN VELASQUEZ MD DICTATED DATE/TIME: 09/06/24 1446 SIGNED BY: MAIN VELASQUEZ MD SIGNED DATE/TIME: 09/06/24 1446 CC: Discharged With: Self Critical Care Note Critical Care Time?: No I personally scribed for ARIS SALAZAR DO ([email or web address]) on 09/06/24 at 13:27. Electronically submitted by Brittany Henderson ([facility]). I personally scribed for ARIS SALAZAR DO ([email or web address]) on 09/06/24 at 14:16. Electronically submitted by Brittany Henderson ([facility]). I personally scribed for ARIS SALAZAR DO ([email or web address]) on 09/06/24 at 17:29. Electronically submitted by Brittany Henderson ([facility]). I personally scribed for ARIS SALAZAR DO ([email or web address]) on 09/06/24 at 21:36. Electronically submitted by Brittany Henderson ([facility]). ARIS SALAZAR DO Sep 06, 2024 13:27
[2024-09-06] MEDS: KETOROLAC TROMETH 30 MG/ML 1ML VIAL IV ONE (14:30)
[2024-09-06] MEDS: DexAMETHasone SOD PHOS 10MG/1ML VIAL INJ IV ONE (14:31)
[2024-09-06] MEDS: HYDROcodone-ACET 5/325MG TAB PO ONE (14:31)
--- NOTE | 2024-09-06 14:48 | DVH ---
EXAM: CT LS SPINE WO CONTRAST HISTORY: LOW BACK PAIN COMPARISON: None CTDIvol 29.74 mGy, DLP 878.52 mGy*cm. TECHNIQUE: Multiple axial CT images of the spine were obtained using bone algorithm. Axial and arias l reformatting was done. Bone and soft tissue windows were reviewed. FINDINGS: No evidence of definite acute fracture, spinal dislocation, or significant appearing acute subluxatio n is seen. Few punctate nonobstructing left renal stones in the left upper pole, partially imaged. [id number] canal stenosis at L2-L3. Moderate stenosis at L3-L4 and L4-L5. IMPRESSION: No definite CT evidence of acute fracture or dislocation of the bony lumbar spine.
[2024-09-06 17:20] VITALS: BP 122/79; PULSE 72; RESP 16; TEMP 97.7; O2SAT 97
== END 2024-09-06 17:50 | disposition home or self-care (01) ==
LOC: EDBD 13:19 → ER 13:19
DX: M54.50 Low back pain, unspecified (principal); F10.90 Alcohol use, unspecified, uncomplicated; F12.90 Cannabis use, unspecified, uncomplicated; F41.9 Anxiety disorder, unspecified; J44.89 Other specified chronic obstructive pulmonary disease; G89.29 Other chronic pain; I25.2 Old myocardial infarction; E78.5 Hyperlipidemia, unspecified; I10 Essential (primary) hypertension; Z79.899 Other long term (current) drug therapy; Z87.891 Personal history of nicotine dependence; Z79.82 Long term (current) use of aspirin; Z79.02 Long term (current) use of antithrombotics/antiplatelets; Y90.9 Presence of alcohol in blood, level not specified
CPT/HCPCS: 72131; 96374; 96375; 99285; J1100; J1885